=== PATIENT | female | born 1940 | race Caucasian/White ===

== ENCOUNTER 2017-12-05 20:22 | Emergency (ER) | payer MEDICARE, OTHER, SELFPAY ==
[2017-12-05 20:23] VITALS: BP 177/95; PULSE 75; RESP 20; TEMP 37; O2SAT 97; BMI 22.5
--- NOTE | 2017-12-05 20:34 | CT_ITS ---
CT Head or Brain W/O Contrast INDICATION: WEAKNESS, MENTAL STATUS CHANGES, AGITATED, COMBATIVE, RECENT BACK SX, HX PARKINSONS COMPARISON: None TECHNIQUE: Noncontrast axial CT examination of the brain. Radiation dose optimization applied. FINDINGS: The ventricular system is normal in size and symmetric. The cortical sulci, sylvian fissures, and basal cisterns are well seen. The naranjo-white matter junction is distinct. There is no evidence of acute intracranial hemorrhage, mass effect, midline shift, or abnormal extra-axial collection. The calvarium is intact and the visualized paranasal sinuses and mastoid air cells are clear. CT/Brain/Head without Contrast IMPRESSION: No evidence of acute intracranial abnormality by noncontrast CT. at 2120 Reported and signed by: Lori Mckeon MD Electronically Signed: Lori Mckeon MD at 20:19 EST Tel , Service support ,
--- NOTE | 2017-12-05 20:34 | RAD_ITS ---
XR Chest 1 View INDICATION: MENTAL STATUS CHANGE, RECENT BACK SURGERY COMPARISON: None TECHNIQUE: Frontal view of the chest FINDINGS: The heart size is enlarged. Central pulmonary vascularity is prominent. The patient is rotated and costochondral junction results in hyperdensity in the right suprahilar region. Mild atelectatic changes are seen at the bases, the lungs are otherwise clear. Bridging osteophytes are noted at the thoracic spine. The right hemidiaphragm is mildly elevated. RAD/Chest 1 View (Portable) IMPRESSION: Patient rotation. Cardiomegaly. Mild bibasilar atelectasis. at 2103 Reported and signed by: Lori Mckeon MD Electronically Signed: Lori Mckeon MD at 20:02 EST Tel , Service support ,
--- NOTE | 2017-12-05 20:34 | EKG12_ITS ---
Test Reason : MENTAL STATUS CHANGE Blood Pressure : / mmHG Vent. Rate : 071 BPM Atrial Rate : 071 BPM P-R Int : 216 ms QRS Dur : 078 ms QT Int : 428 ms P-R-T Axes : 029 -21 008 degrees QTc Int : 465 ms Sinus rhythm with 1st degree A-V block Leftward axis Poor R wave progression Nonspecific T wave abnormality Confirmed by SOLITARIO GRIDER, HARRIS ([id number]), assistant production editor SHAQ ROBERTO ([id number]) on 12/09/2017 1:05:21 PM Referred By: Confirmed By:HARRIS JEREZ MD
--- NOTE | 2017-12-05 20:46 | ED.VISSUMM ---
- ER Visit Summary Date of Service: 12/05/17 Chief Complaint: Agitated History of Present Illness: The patient is a 77 F presenting with combative behavior. Per family patient has been agitated today. She has not been eating or drinking as well as usual. She is currently in assisted living. She was combative with staff trying to help her today. She had a recent procedure with Dr. Pastrana for a compression fracture. No change in her pain medications. She has a history of hypertension, hyperlipidemia, Parkinson's disease. She is DNR [facility]. Physical Examination: Vitals are stable. Patient is afebrile. Alert no acute distress. HEENT exam dry mucous membranes Neck is supple. Lungs are clear and equal bilaterally. Heart is regular rate and rhythm. Abdomen is soft nontender nondistended. Back: Nontender, no signs of infection Extremities are unremarkable. Skin is warm and dry. No focal neurologic deficit. Agitated Remainder of exam is unremarkable. Emergency Department Course and Treatment: EKG is sinus rate of 71. Chest x-ray shows cardiomegaly, atelectasis. CBC is normal except for platelets 146 which is at her baseline. Chemistries unremarkable. Urinalysis unremarkable. Troponin is negative. CT head shows no acute process. Influenza negative. Patient takes Dilaudid at home for her chronic back pain. She is given 1 dose in the emergency department. Discussed with the counseling center for evaluation for geropsychiatric admission. Disposition: Per counseling center Impression: Combative behavior This note was generated with [employer] dictation software. It may contain incorrect words, spelling, and punctuation that were not noted in review of the chart prior to signing ED Disposition - Plan for ED Patient: Chief Complaint: Mental Status Change Referrals: Ruthie Castro MD [Primary Care Provider] -
[2017-12-05 20:47] LABS: Absolute Lymphocyte Count 0.82 X10^3/ul (0.83-4.51); Absolute Neutrophil Count 2.9 X10^3/uL (2.0-7.7); Basophil# 0.01 X10^3/uL; Basophil% 0.2 % (0-1); Eosinophil# 0.06 X10^3/uL; Eosinophils% 1.4 % (0-5); Hematocrit 40.9 % (37-47); Hemoglobin 13.8 g/dl (12.0-15.0); Lymphocyte # 0.82 X10^3/ul (4.0); Lymphocyte % 19.2 % (19-41); Mean Corp Hgb Conc 33.7 g/gl (32-36); Mean Corpuscular Hgb 30.6 pg (27.0-32.0); Mean Corpuscular Volume 90.7 fL (81-99); Mean Platelet Vol. 10.4 fl (6.2-12.0); Monocyte# 0.48 X10^3/uL; Monocyte% 11.3 % (0-10); Neutrophil # 2.89 X10^3/uL (2.7-7.7); Neutrophil % 67.9 % (47-70); POSITIVE COUNT NO; POSITIVE DIFFERENTIAL NO; POSITIVE MORPHOLOGY NO; Platelet Count 146 K/mm3 (150-450); RBC Distribution Width CV 14.2 % (11.6-14.6); RBC Distribution Width SD 46.4 fl (35.1-43.9); Red Blood Count 4.51 M/mm3 (4.2-5.4); White Blood Count 4.3 K/mm3 (4.4-11.0)
[2017-12-05 21:06] LABS: Anion Gap 10 (5-15); BUN 16 mg/dL (7-18); BUN/Creat Ratio 33.3 RATIO (10-20); Chloride 106 mmol/L (98-107); Creatinine, Serum 0.48 mg/dL (0.55-1.02); EST Glomerular Filtration Rate 133 mL/min (>60); Est Glom Filt Rate - Afr Amer 161 mL/min (>60); Estimated Creatinine Clearance 38.97 ml/min; Glucose 78 mg/dL (74-106); Potassium 3.6 mmol/L (3.5-5.1); Sodium Level 142 mmol/L (136-145)
[2017-12-05 21:12] LABS: Bacteria 0 SEEN /hpf (None Seen); Mucous, Urine 0 SEEN /hpf (<or=2+)
[2017-12-05 21:14] LABS: Color, Urine Yellow (Yellow); Glucose, Dipstick Normal (Normal); Leukocyte Esterase-Dipstick 100 /ul (Negative); Nitrite-Dipstick Negative (Negative); Occult Blood-Urine 25 /ul (Negative); Protein-Dipstick 15 mg/dl (Negative); Specific Gravity, Urine 1.025 (1.002-1.030); Urine Bilirubin Dipstick 1 mg/dL (Negative); Urine Clarity Clear (Clear); Urine Urobilinogen 1 mg/dl (Normal)
[2017-12-05 21:15] LABS: Ketone-Dipstick 150 mg/dl (Negative)
[2017-12-05 21:20] LABS: Red Blood Cells-Urine 0-5 SEEN /hpf (0-5); Squamous Epithelial Cells - UA 0-5 SEEN /hpf (5-10); White Blood Cells 0-5 SEEN /hpf (0-5)
[2017-12-05 21:28] VITALS: BP 173/80; PULSE 75; RESP 20; O2SAT 96
[2017-12-05] MEDS: HYDROmorphone 1 MG/ML Syringe 0.5 MG IV (22:00)
[2017-12-05 22:03] VITALS: BP 181/96; PULSE 73; RESP 20; O2SAT 98
[2017-12-05 23:29] VITALS: BP 153/87; PULSE 76; RESP 20; O2SAT 96
--- NOTE | 2017-12-05 23:32 | ED.RN ---
FOUND PT CLIMBING OUT OF THE BED AND STATE SHE NEEDED TO GO TO THE BATHROOM,GAIT UNSTEADY.WITH ASSIST OF TWO PLACED PT ON BSC,PT VOIDED [facility] AND THEN BACK TO BED.PT ARTHUR WITHOUT DISTRESS.
[2017-12-06] VITALS (7 sets, daily range): BP systolic 159–193; BP diastolic 60–100; PULSE 74–97; RESP 16–20; TEMP 37.1; O2SAT 97–98
[2017-12-06 00:56] LABS: Amphetamine Urine VISTA NEGATIVE (<1000 ng/mL); Barbiturate Urine VISTA NEGATIVE (< 200 ng/mL); Benzodiazepine Urine VISTA POSITIVE (< 200 ng/mL); Cocaine Urine VISTA NEGATIVE (< 300 ng/mL); Ecstacy Urine VISTA NEGATIVE (< 500 ng/mL); Methadone Urine VISTA NEGATIVE (< 300 ng/mL); PCP Urine VISTA NEGATIVE (< 25 ng/mL); THC Urine VISTA NEGATIVE (< 50 ng/mL); Vista UDS pH Range 5
[2017-12-06] MEDS: Ziprasidone IM 20 MG/ML VIAL 10 MG IM (02:30)
--- NOTE | 2017-12-06 03:49 | ED.RN ---
0230 pt was given lawandadon because she keeps trying to get out of the bed and is not cooperative--argumentive.will assist pt up to the bsc and she voids small amounts of urine and then help pt back to bed and then she tries to get out of the bed once again.
--- NOTE | 2017-12-06 04:01 | ED.RN ---
BED ALARM REMAINS ON.
--- NOTE | 2017-12-06 04:23 | ED.RN ---
WITH ASSIST OF TWO,HELPED PT UP TO THE BSC.PT VOIDED ABOUT 50CC AND THEN BACK TO BED.BED ALARM ON.PT REMAINS RESTLESS AND KEEPS ASKING TO GO TO GO TO THE BATHROOM.PT REMINDED THAT SHE JUST GOT UP AND VOIDED.PT DENIED THAT SHE HAD.CURTAIN PULLED SO PT CAN BE VISUALIZED.
--- NOTE | 2017-12-06 05:18 | ED.RN ---
PT REMAINS RESTLESS,MD AWARE AND SPOKE TO PT.SHE STATED TO HIM THAT SHE WANTED TO GO HOME.PT ADVISED SHE COULD NOT.UNABLE TO REASON WITH HER.DID ENCOURAGE PT TO SLEEP AND SHE STATED SHE COULD NOT.
--- NOTE | 2017-12-06 05:50 | ED.RN ---
PT WAS SAYING THAT SHE WANTED FOOD,BROUGHT PT SOME COOKIES AND PT DECLINED SAYING SHE WANTED REAL FOOD.THIS NURSE BROUGHT IN A SANDWHICH AND MILK AND PT REFUSED.BED ALARM REMAINS ON.PT REFUSED THE BP CUFF TO BE APPLIED.PT TOOK IT OFF AND DIDN'T WANT IT ON.LEFT OFF.
--- NOTE | 2017-12-06 06:54 | ED.RN ---
WITH ASSIST OF TWO HELPED PT UP TO THE BSC,PT VOIDED AND BACK IN BED.PT ARTHUR WITH C/O WANTING TO GO HOME.OFFERRED HER SOME COOKIES AND MILK AND PT DECLINED.BED ALARM ON.
--- NOTE | 2017-12-06 08:48 | ED.RN ---
PT AGITATED, ATTEMPTING TO GET OUT OF BED. BED RAILS UP X2, FOOT RAISED, BED ALARM ON. PT STATES WANTING TO GO HOME. WAITING FOR [facility] TO RETURN CALL FOR PT REPORT.
--- NOTE | 2017-12-06 08:54 | ED.RN ---
[facility] accepted. dr hartmann accepted. [phone]
--- NOTE | 2017-12-06 09:12 | NURSING ---
ACCEPTED AT [facility]
--- NOTE | 2017-12-06 09:16 | ED.RN ---
PT REPORT CALLED TO [facility] TO ISA[facility].
--- NOTE | 2017-12-06 09:20 | NURSING ---
CALLED [facility]. ETA IS 1 HR TO 1.5 HR
--- NOTE | 2017-12-06 09:45 | NURSING ---
CALLED [facility], TALKED TO ISAAC. LET HER KNOW PATIENT IS BEING PINK SLIPPED
== END 2017-12-06 11:02 ==
LOC: ED 20:54
PROVIDERS: Emergency Provider Emergency Medicine; Family Provider Family Medicine; PCP Family Medicine
DX: F91.9 Conduct disorder, unspecified (principal); I10 Essential (primary) hypertension; E78.00 Pure hypercholesterolemia, unspecified; G20 Parkinson's disease; K21.9 Gastro-esophageal reflux disease without esophagitis; I51.7 Cardiomegaly; J98.11 Atelectasis; M54.9 Dorsalgia, unspecified; G89.29 Other chronic pain; Z66 Do not resuscitate; Z79.82 Long term (current) use of aspirin; Z79.899 Other long term (current) drug therapy
CPT/HCPCS: 70450; 71045; 80048; 80307; 81001; 84484; 85025; 87804; 93005; 96361; 96372; 96374; 99285; J7030; J7040; A4216; J2405; J3486

== ENCOUNTER 2018-05-20 18:39 | Emergency (ER) | payer MEDICARE, OTHER, SELFPAY ==
[2018-05-20 18:40] VITALS: BP 166/95; PULSE 64; RESP 15; TEMP 37.3; O2SAT 95; BMI 24.5
--- NOTE | 2018-05-20 19:24 | CT_ITS ---
STUDY: CT ABDOMEN AND PELVIS WITHOUT CONTRAST REASON FOR EXAM: Female, 77 years old. Abdominal pain no bowel movement since last Saturday History of Parkinson's RADIATION DOSAGE (If Supplied By Facility): CTDIvol = ( 7.03 ) mGy, DLP = ( 335.11 ) mGycm TECHNIQUE: Transaxial images were obtained from the dome of the diaphragm to the symphysis pubis without oral contrast, and without intravenous contrast. Sagittal and coronal images were reconstructed. Individualized dose optimization techniques were used for this CT. COMPARISON: None. FINDINGS: There are groundglass opacities in the lung bases. There is partial visualization of the heart. The heart appears mildly enlarged. Normal liver. Normal gallbladder and extrahepatic biliary system. Normal spleen. Normal pancreas. Normal bilateral adrenal glands. There is a right-sided extrarenal pelvis. There is a 3.4 mm stone in the lower pole of the right kidney. There multiple stones in the left kidney the largest of which measures 3.4 x 6.6 mm. There is no visualized hydronephrosis. Normal visualized stomach. Normal small intestine. There is abundant stool in the colon especially the distal descending colon and sigmoid. There is a air fluid appearance of the cecum. There is a tortuous appearance of the distal transverse colon and sigmoid with a hairpin turn. There is non-visualization of the appendix. The aorta is partially calcified. Normal inferior vena cava. Normal retroperitoneum. Normal urinary bladder. There is absence of the uterus consistent with a prior hysterectomy. There is a small umbilical hernia containing fat. There is loss of height at the level of T11 and T12 of at least 75% which is new since the prior study January 17, 2017 does not appear acute. L2 has been treated with vertebroplasty. There is multilevel disc space narrowing. At the level of L2 there is radiopaque material extending into the canal. There is moderate central stenosis. At L2-L3 there is a broad disc bulge severe neural foraminal narrowing moderate to severe central stenosis. At L4-L5 there is a broad disc osteophyte facet arthropathy severe neural foraminal narrowing severe central stenosis. There is disc space narrowing at L5-S1. There are bilateral intramedullary rods and cortical screws transfixing the femurs. CT/Abdomen/Pelvis without Cont IMPRESSION: Constipation tortuous redundant bowel. The appendix is not visualized. Bilateral renal stones are visualized hydronephrosis or stones along the course of ureters. Advanced degenerative changes of the thoracolumbar spine. Chronic T11-T12 compression fractures. Bilateral open reduction internal fixation of the femurs. Electronically Signed: Leyla Galvez MD at 20:18 EDT Tel , Service support ,
[2018-05-20 19:38] LABS: Absolute Lymphocyte Count 1.35 X10^3/ul (0.83-4.51); Absolute Neutrophil Count 2.8 X10^3/uL (2.0-7.7); Basophil# 0.03 X10^3/uL; Basophil% 0.6 % (0-1); Eosinophil# 0.17 X10^3/uL; Eosinophils% 3.6 % (0-5); Hematocrit 39.2 % (37-47); Hemoglobin 13.3 g/dl (12.0-15.0); Lymphocyte # 1.35 X10^3/ul (4.0); Lymphocyte % 28.4 % (19-41); Mean Corp Hgb Conc 33.9 g/gl (32-36); Mean Corpuscular Hgb 28.7 pg (27.0-32.0); Mean Corpuscular Volume 84.7 fL (81-99); Mean Platelet Vol. 9.8 fl (6.2-12.0); Monocyte# 0.44 X10^3/uL; Monocyte% 9.3 % (0-10); Neutrophil # 2.76 X10^3/uL (2.7-7.7); Neutrophil % 58.1 % (47-70); Platelet Count 179 K/mm3 (150-450); RBC Distribution Width CV 14.1 % (11.6-14.6); RBC Distribution Width SD 42.7 fl (35.1-43.9); Red Blood Count 4.63 M/mm3 (4.2-5.4); White Blood Count 4.8 K/mm3 (4.4-11.0)
[2018-05-20 19:39] LABS: POSITIVE COUNT NO; POSITIVE DIFFERENTIAL NO; POSITIVE MORPHOLOGY NO
[2018-05-20 19:40] LABS: Anion Gap 8 (5-15); BUN 18 mg/dL (7-18); BUN/Creat Ratio 23.7 RATIO (10-20); Calcium,Total 9.3 mg/dL (8.5-10.1); Chloride 105 mmol/L (98-107); Creatinine, Serum 0.76 mg/dL (0.55-1.02); EST Glomerular Filtration Rate 79 mL/min (>60); Est Glom Filt Rate - Afr Amer 95 mL/min (>60); Estimated Creatinine Clearance 37.26 ml/min; Glucose 92 mg/dL (74-106); Potassium 4.1 mmol/L (3.5-5.1); Sodium Level 139 mmol/L (136-145)
[2018-05-20 20:58] LABS: Bacteria 0 SEEN /hpf (None Seen); Mucous, Urine 0 SEEN /hpf (<or=2+); Red Blood Cells-Urine 0 SEEN /hpf (0-5); Squamous Epithelial Cells - UA 0 SEEN /hpf (5-10)
[2018-05-20 20:59] LABS: Color, Urine Yellow (Yellow); Glucose, Dipstick Normal (Normal); Ketone-Dipstick 5 mg/dl (Negative); Leukocyte Esterase-Dipstick 500 /ul (Negative); Nitrite-Dipstick Negative (Negative); Occult Blood-Urine Negative /ul (Negative); Protein-Dipstick Negative (Negative); Specific Gravity, Urine 1.015 (1.002-1.030); Urine Bilirubin Dipstick Negative (Negative); Urine Clarity Clear (Clear); Urine Urobilinogen Normal (Normal)
[2018-05-20 21:11] LABS: White Blood Cells 0-5 SEEN /hpf (0-5)
[2018-05-20 21:28] VITALS: BP 190/119; PULSE 62; RESP 18; O2SAT 97
--- NOTE | 2018-05-20 22:18 | ED.VISSUMM ---
- ER Visit Summary Date of Service: 05/20/18 Chief Complaint: Abdominal pain, constipation History of Present Illness: The patient is a 77 F who complains of vague abdominal pain. She is a feeling of the needing to have a bowel movement but is unable. Her last bowel movement was 3 days ago. Daughter states that she tends to fluctuate between constipation and diarrhea. She has not had fever or vomiting. Past history significant for reflux, hypertension, high cholesterol, Parkinson's. Only prior abdominal surgery is a hysterectomy. Physical Examination: Vital signs significant for blood pressure 166/95, temperature 99.1. Head neck examination normal. Heart is regular rate and rhythm. Lung sounds are clear. Abdomen is soft with mild lower abdominal tenderness. Active bowel sounds are noted throughout. There is no guarding or rebound. Test Results: CBC and chemistry studies are normal. Urinalysis shows [address] flank shows constipation. Bilateral renal stones are noted. Emergency Department Course and Treatment: Patient was given a soapsuds enema here which she did not tolerate well. After discussing with patient's daughter, she feels that she would do better with an oral regimen at home. She is currently in assisted living. She states there will be staff available to help her tomorrow with this. She will be given a bottle of GoLYTELY, with instructions to drink 1 glass every 20-30 minutes until she is able to have a bowel movement. She will likely not need to drink the entire bottle. Treatment Plan: [] Disposition: Discharge Impression: Constipation This note was generated with [employer] dictation software. It may contain incorrect words, spelling, and punctuation that were not noted in review of the chart prior to signing ED Disposition - Plan for ED Patient: Disposition: Home or Assisted Living Chief Complaint: Abd Pain Instructions: ED Constipation Referrals: Ruthie Castro MD [Primary Care Provider] - 1 Week
[2018-05-20 22:19] VITALS: BP 170/115; PULSE 63; RESP 18; O2SAT 97
[2018-05-20] MEDS: Electrolyte Solution/Peg's 4000 ML PO (22:50)
== END 2018-05-20 23:00 | disposition home or self-care (01) ==
PROVIDERS: Emergency Provider Emergency Medicine; Family Provider Family Medicine; PCP Family Medicine
DX: K59.00 Constipation, unspecified (principal); N20.0 Calculus of kidney; K21.9 Gastro-esophageal reflux disease without esophagitis; I10 Essential (primary) hypertension; E78.00 Pure hypercholesterolemia, unspecified; G20 Parkinson's disease; Z90.710 Acquired absence of both cervix and uterus; Z79.82 Long term (current) use of aspirin; Z79.899 Other long term (current) drug therapy
CPT/HCPCS: 74176; 80048; 81001; 85025; 99285; A4216

== ENCOUNTER 2018-05-25 21:09 | Inpatient (IN) | payer MEDICARE, OTHER, SELFPAY ==
[2018-05-25 21:11] VITALS: BP 151/89; PULSE 64; RESP 15; TEMP 37.3; O2SAT 93; BMI 23.8
--- NOTE | 2018-05-25 21:34 | CT_ITS ---
STUDY: CT BRAIN WITHOUT CONTRAST REASON FOR EXAM: Female, 77 years old. Headache and hypertension. Parkinson's. RADIATION DOSAGE (If Supplied By Facility): CTDIvol = ( 44.99 ) mGy, DLP = ( 812.98 ) mGycm TECHNIQUE: Transaxial CT imaging of the brain was performed without administration of intravenous contrast material. Individualized dose optimization techniques were used for this CT. COMPARISON: December 05, 2017 FINDINGS: Normal soft tissue structures. Normal calvarium. Ossification of the falx on the left. Normal size ventricles and extra-axial spaces for the patient's age. Normal white matter tracts of the cerebral hemispheres. Normal basal ganglia and thalami. Normal brainstem. Normal cerebellum. There is no intracranial hemorrhage. There are no findings of an acute ischemic infarction. Normal visualized paranasal sinuses. CT/Brain/Head without Contrast IMPRESSION: Normal unenhanced CT scan of the brain. Electronically Signed: Pedro Pablo Chery MD at 22:41 EDT , Service support ,
--- NOTE | 2018-05-25 21:34 | RAD_ITS ---
STUDY: X-RAY CHEST REASON FOR EXAM: Female, 77 years old. Left clavicular pain status post fall TECHNIQUE: Single frontal view of the chest. COMPARISON: October 26, 2017 and December 05, 2017 FINDINGS: New bilateral clavicular fractures. Subsegmental atelectasis left base. The lungs are clear and expanded. There is no demonstrated pleural abnormality. Normal size heart. Normal mediastinum and jarocho. Normal visualized pulmonary arteries. Normal visualized aortic arch and descending thoracic aorta. Normal visualized thoracic spine. Normal visualized ribs, clavicles, and shoulders. There is no demonstrated abnormality of the visualized soft tissue structures of the upper abdomen. IMPRESSION: New bilateral clavicular fractures otherwise Normal x-ray examination of the chest. Electronically Signed: Pedro Pablo Chery MD at 22:30 EDT , Service support , RAD/Chest 1 View (Portable)
--- NOTE | 2018-05-25 21:36 | CT_ITS ---
STUDY: CT CERVICAL SPINE WITHOUT CONTRAST REASON FOR EXAM: Female, 77 years old. Fall RADIATION DOSAGE (If Supplied By Facility): CTDIvol = ( 16.56 ) mGy, DLP = ( 302.94 ) mGycm TECHNIQUE: High resolution transaxial imaging was performed without contrast material. Sagittal and coronal images were reconstructed. Individualized dose optimization techniques were used for this CT. COMPARISON: Cervical spine radiograph February 01, 2016 and MR cervical spine May 27, 2015 FINDINGS: Normal craniovertebral junction. Normal anterior atlantoaxial articulation. Normal odontoid process. Normal cervical lordosis. Normal vertebral bodies and posterior osseous elements. C2-3: Normal endplates. Normal disc height and morphology. Normal central canal and intervertebral neuroforamina. C3-4: Normal endplates. Normal disc height and morphology. Normal central canal and intervertebral neuroforamina. Posterior disc marginal osteophyte. C4-5: Normal endplates. Normal disc height and morphology. Normal central canal and narrowed right intervertebral neuroforamina. Posterior disc marginal osteophyte. C5-6: Normal endplates. Normal disc height and morphology. Normal central canal and intervertebral neuroforamina. C6-7: Normal endplates. Normal disc height and morphology. Normal central canal and intervertebral neuroforamina. Posterior disc marginal osteophyte. C7-T1: Normal endplates. Normal disc height and morphology. Normal central canal and intervertebral neuroforamina. Posterior disc marginal osteophyte. Normal visualized soft tissue structures. Calcified plaque in the carotid bulb on the left. CT/Spine Cervical without Contras IMPRESSION: No fracture Electronically Signed: Pedro Pablo Chery MD at 22:45 EDT , Service support ,
[2018-05-25] MEDS: 0.9% Normal Saline 1,000 ML 1000 ML IV (21:44)
[2018-05-25] MEDS: Ondansetron 4 MG/2 ML Vial IV (21:45)
[2018-05-25] MEDS: Morphine 2 MG/ML Syringe IV (21:46)
[2018-05-25 21:52] LABS: Hematocrit 38.4 % (37-47); Hemoglobin 13.1 g/dl (12.0-15.0); Mean Corp Hgb Conc 34.1 g/gl (32-36); Mean Corpuscular Hgb 28.9 pg (27.0-32.0); Mean Corpuscular Volume 84.6 fL (81-99); Mean Platelet Vol. 10.3 fl (6.2-12.0); Platelet Count 190 K/mm3 (150-450); RBC Distribution Width CV 13.9 % (11.6-14.6); RBC Distribution Width SD 42.6 fl (35.1-43.9); Red Blood Count 4.54 M/mm3 (4.2-5.4); White Blood Count 4.4 K/mm3 (4.4-11.0)
[2018-05-25 21:55] LABS: Scan Indicated on CBC? Y/N NO
[2018-05-25 22:05] LABS: ALB/GLOB Ratio 1.1 RATIO (0.9-2.4); AST(SGOT) 12 U/L (15-37); Alanine Aminotransfer ALT/SGPT 8 U/L (13-56); Albumin, Serum 3.7 g/dL (3.2-5.0); Alkaline Phosphatase 124 U/L (45-117); Anion Gap 7 (5-15); BUN 19 mg/dL (7-18); BUN/Creat Ratio 27.5 RATIO (10-20); Calcium,Total 9.2 mg/dL (8.5-10.1); Chloride 107 mmol/L (98-107); Creatinine, Serum 0.69 mg/dL (0.55-1.02); EST Glomerular Filtration Rate 87 mL/min (>60); Est Glom Filt Rate - Afr Amer 106 mL/min (>60); Estimated Creatinine Clearance 37.26 ml/min; Globulin 3.3 g/dL (2.2-4.2); Glucose 120 mg/dL (74-106); Potassium 3.7 mmol/L (3.5-5.1); Sodium Level 140 mmol/L (136-145)
[2018-05-25 22:25] LABS: Red Blood Cells-Urine 0 SEEN /hpf (0-5); Squamous Epithelial Cells - UA 0 SEEN /hpf (5-10)
[2018-05-25 22:27] LABS: Color, Urine Yellow (Yellow); Glucose, Dipstick Normal (Normal); Ketone-Dipstick 15 mg/dl (Negative); Leukocyte Esterase-Dipstick Negative /ul (Negative); Nitrite-Dipstick Negative (Negative); Occult Blood-Urine 10 /ul (Negative); Protein-Dipstick 15 mg/dl (Negative); Urine Bilirubin Dipstick Negative (Negative); Urine Clarity Clear (Clear); Urine Urobilinogen Normal (Normal)
[2018-05-25 22:42] VITALS: BP 125/88; BP 139/84; BP 140/72; PULSE 58; PULSE 59; PULSE 61
[2018-05-25 22:53] LABS: Bacteria RARE /hpf (None Seen); Hyaline Cast 0-5 SEEN /lpf (0-5); Mucous, Urine 2+ /hpf (<or=2+); White Blood Cells 0-5 SEEN /hpf (0-5)
--- NOTE | 2018-05-25 23:08 | CT_ITS ---
STUDY: CT CHEST WITHOUT CONTRAST REASON FOR EXAM: Female, 77 years old. Fall. Left-sided pain. Chest wall trauma. RADIATION DOSAGE (If Supplied By Facility): CTDIvol = ( 16.34 ) mGy, DLP = ( 671.10 ) mGycm TECHNIQUE: Transaxial imaging was performed without the administration of intravenous contrast material. Individualized dose optimization techniques were used for this CT. COMPARISON: Chest x-ray May 25, 2018. CT abdomen and pelvis May 20, 2018. FINDINGS: Bilateral lower lobe dependent atelectasis. No focal infiltrate or effusions. No pneumothorax. Borderline cardiomegaly. No pericardial effusion. Normal mediastinum. Normal hilar regions. Normal unenhanced pulmonary arteries. Mild atherosclerotic calcification of the thoracic aorta. Mildly displaced fracture distal one third of the left clavicle axial images 10 through 18 series 2 and coronal image 108 series 602. Old left fourth anterior rib fracture unchanged axial image 69 series 2. Severe compression fractures T11 and T12 unchanged since the prior recent CT scan.. There is a focal kyphosis at these levels. Additional mild to moderate compression fractures T6, T7 and T8 which are also probably old. An acute fracture line is not identified. Postkyphoplasty changes at L2. Lower thoracic dextroscoliosis. Scattered subcentimeter nonobstructing left renal calculi unchanged. CT/Chest without Contrast IMPRESSION: Mildly displaced fracture distal left clavicle. No acute findings in the lungs. No focal infiltrates or effusions. No pneumothorax. Old severe compression fractures T11 and T12. Additional compression fractures in the thoracic spine which are probably old. Old left fourth anterior rib fracture. Electronically Signed: Tino Butler MD at 0:31 EDT , Service support ,
[2018-05-25 23:09] VITALS: BP 133/68; PULSE 55; RESP 15; O2SAT 93
--- NOTE | 2018-05-25 23:30 | ED.VISSUMM ---
- ER Visit Summary Date of Service: 05/25/18 Chief Complaint: Fall History of Present Illness: The patient is a 77 F who lives in an assisted living like center. She apparently has had numerous falls over the past year. She was seen in the emergency department about 5 days ago with constipation. Since that time she has not had much to eat or drink and in fact has not really had anything today. Daughter states that they found her today slumped up against a wall. Her chief complaints from the fall include a headache and a bump in the occipital region as well as pain in the left shoulder and in her neck. She denies any symptoms from the waist down. She points to her mid clavicle as the source of pain and states that she broke her clavicle in the past. (Prior healed clavicular fracture was not noted on chest x-ray in November 2017.) daughter states the patient is extremely weak and she does not believe that is safe for the patient to return to assisted living. Physical Examination: Afebrile vital signs are stable Gen: Well-nourished well-developed patient appears globally weak. Head: Normocephalic atraumatic Eyes: Perrl EOMI ENT: TMs clear no rhinorrhea moist mucous membranes Neck: Supple no lymphadenopathy no JVD nontender CVS: Regular rate rhythm no murmurs normal S1-S2 Respiratory: No distress clear to auscultation bilaterally patient has tenderness to the mid left clavicular region with associated hematoma. Abdomen: Soft nontender nondistended normal bowel sounds no masses Back: Nontender Extremity: Nontender no edema Skin: Normal color no rash Neuro: alert orientated ?3 CN II-XII intact Psych: Normal affect normal mood Test Results: CBC and CMP appear normal. Urinalysis shows ketones as well as concentration with a specific gravity 1.030. No obvious infection. Chest x-ray was read as bilateral clavicular fractures. Based on physical exam findings I do not see a fracture on the right I would agree with one on the left. Family is asked for a confirmatory study and so a CT the chest was obtained which does demonstrate the left clavicular fracture. Brain and C-spine CT imaging were negative. Emergency Department Course and Treatment: The patient received morphine and Zofran and IV fluids. Patient was asked to stand at the bedside and essentially could not she use the bed leaning up against. Her orthostatics were not positive. These were performed before the patient received pain medication. Patient is clearly not safe to go home. Family is not sure that she is safe to be in an assisted living center. Our plan will be to admit the patient for IV hydration for her dehydration physical therapy evaluation and probable placement. Impression: 1. Fall 2. Dehydration 3. Left clavicular fracture 4. Parkinson's disorder This note was generated with [employer] dictation software. It may contain incorrect words, spelling, and punctuation that were not noted in review of the chart prior to signing ED Disposition - Plan for ED Patient: Chief Complaint: Fall Referrals: Ruthie Castro MD [Primary Care Provider] -
--- NOTE | 2018-05-25 23:34 | ED.DCSUM_ITS ---
- ER Visit Summary Date of Service: 05/25/18 Chief Complaint: Fall History of Present Illness: The patient is a 77 F who lives in an assisted living like center. She apparently has had numerous falls over the past year. She was seen in the emergency department about 5 days ago with constipation. Since that time she has not had much to eat or drink and in fact has not really had anything today. Daughter states that they found her today slumped up against a wall. Her chief complaints from the fall include a headache and a bump in the occipital region as well as pain in the left shoulder and in her neck. She denies any symptoms from the waist down. She points to her mid clavicle as the source of pain and states that she broke her clavicle in the past. (Prior healed clavicular fracture was not noted on chest x-ray in November 2017.) daughter states the patient is extremely weak and she does not believe that is safe for the patient to return to assisted living. Physical Examination: Afebrile vital signs are stable Gen: Well-nourished well-developed patient appears globally weak. Head: Normocephalic atraumatic Eyes: Perrl EOMI ENT: TMs clear no rhinorrhea moist mucous membranes Neck: Supple no lymphadenopathy no JVD nontender CVS: Regular rate rhythm no murmurs normal S1-S2 Respiratory: No distress clear to auscultation bilaterally patient has tenderness to the mid left clavicular region with associated hematoma. Abdomen: Soft nontender nondistended normal bowel sounds no masses Back: Nontender Extremity: Nontender no edema Skin: Normal color no rash Neuro: alert orientated ?3 CN II-XII intact Psych: Normal affect normal mood Test Results: CBC and CMP appear normal. Urinalysis shows ketones as well as concentration with a specific gravity 1.030. No obvious infection. Chest x- ray was read as bilateral clavicular fractures. Based on physical exam findings I do not see a fracture on the right I would agree with one on the left. Family is asked for a confirmatory study and so a CT the chest was obtained which does demonstrate the left clavicular fracture. Brain and C- spine CT imaging were negative. Emergency Department Course and Treatment: The patient received morphine and Zofran and IV fluids. Patient was asked to stand at the bedside and essentially could not she use the bed leaning up against. Her orthostatics were not positive. These were performed before the patient received pain medication. Patient is clearly not safe to go home. Family is not sure that she is safe to be in an assisted living center. Our plan will be to admit the patient for IV hydration for her dehydration physical therapy evaluation and probable placement. Impression: 1. Fall 2. Dehydration 3. Left clavicular fracture 4. Parkinson's disorder This note was generated with [employer] dictation software. It may contain incorrect words, spelling, and punctuation that were not noted in review of the chart prior to signing ED Disposition - Plan for ED Patient: Chief Complaint: Fall Referrals: Ruthie Castro MD [Primary Care Provider] -
[2018-05-26 00:23] VITALS: BP 146/70; PULSE 65; RESP 15; O2SAT 93
[2018-05-26 01:43] VITALS: BMI 22.8
[2018-05-26 01:56] VITALS: BMI 22.9
[2018-05-26] MEDS: Morphine 2 MG/ML Syringe 1 MG IV ×2 (02:09→06:23)
[2018-05-26] MEDS: 0.9% Normal Saline 1,000 ML 100 ML IV (02:11)
[2018-05-26 02:16] VITALS: BP 142/77; PULSE 67; RESP 16; TEMP 36.8; O2SAT 97
--- NOTE | 2018-05-26 03:33 | PCM.HP.STD ---
Problem List (1) Clavicular fracture Status: Acute (2) Multiple falls Status: Acute (3) Dehydration Status: Acute History of Present Illness Date of Admission: 05/26/18 Chief Complaint: Fall The patient is a 77 year old F who lives in assisted living; and with a significant history of Parkinson's disease and hypertension who presented after being found propped up against a wall. Patient's reported that she she tripped over and fell hitting the back of her head and she has extreme pain in her left upper chest and left shoulder. Her daughter reported that since is not eating or drinking. The patient has had multiple falls in the last year. She had a femur fracture last fall. Her daughter does not think that she can take care of herself at the assisted living facility.She was seen at emergency department 5 days ago because of constipation. With this visit, patient was noted to have ketones in her urine. ED doctor reported the patient was unable to be maintained in a standing position for orthostatic blood pressure checks. Past Medical History Past Medical History (Chronic Problems): Chronic Problems GERD (gastroesophageal reflux disease) (Chronic) Closed left hip fracture (Chronic) Anxiety (Chronic) Hypertension (Chronic) Parkinson disease (Chronic) end stage, pt has declined sinemet until recently, sinemet and sinemet CR are both fairly new for her, she is tolerating well Depression (Chronic) Osteoarthritis (Chronic) Flatulence (Chronic) Constipation (Chronic) Insomnia (Chronic) Muscle spasm (Chronic) Allergies ciprofloxacin [From Cipro] Allergy (Verified 05/20/18 18:42) Unknown not sure but thinks she is doxycycline Allergy (Verified 05/25/18 21:29) Unknown not sure but thinks she is erythromycin base Allergy (Verified 05/25/18 21:29) Unknown not sure but thinks she is fentanyl Allergy (Verified 05/25/18 21:29) Unknown not sure fosinopril [From Monopril] Allergy (Verified 05/25/18 21:29) Unknown not sure lorazepam Allergy (Verified 05/25/18 21:29) Unknown unsure midazolam [From Versed] Allergy (Verified 05/25/18 21:29) Unknown unsure moxifloxacin [From Avelox] Allergy (Verified 05/25/18 21:29) Unknown unsure naproxen [From Anaprox] Allergy (Verified 05/25/18 21:29) Unknown nitrofurantoin [From Macrobid] Allergy (Verified 05/25/18 21:29) Unknown she's not sure Penicillins Allergy (Verified 05/25/18 21:29) Rash sulfacetamide Allergy (Verified 05/20/18 18:42) Unknown unaware of the reaction telithromycin [From Ketek] Allergy (Verified 05/20/18 18:42) Unknown unaware of reaction hydrocodone [From Vicodin] Adverse Reaction (Verified 05/20/18 18:42) nausea/vomitting propoxyphene [From Darvocet-N] Adverse Reaction (Verified 05/20/18 18:42) n/v tramadol Adverse Reaction (Verified 05/20/18 18:42) n/v Home Medications: Ambulatory Orders Medication Instructions Recorded Melatonin/Pyridoxine [Melatonin 5 10 mg PO QHS PRN 06/12/16 mg Tablet] Carvedilol [Coreg (Beta [place])] 6.25 mg PO BID 11/29/16 Trihexyphenidyl HCl 1 mg PO TID 11/29/16 Calcium Carbonate [Tums] 1,000 mg PO Q4H PRN PRN #0 tablet 12/13/16 Polyvinyl Alcohol [Artificial 1 drop EACH EYE DAILY PRN PRN 07/13/17 Tears] Ondansetron [Zofran Odt] 4 mg PO Q8H PRN PRN #30 08/12/17 levETIRAcetam tablet [Keppra 500 mg PO QHS tablet 08/30/17 tablet] Carbidopa/Levodopa 25/100 [Sinemet 2 tablet PO TIDAC #30 09/09/17 25/100] Carbidopa/Levodopa 50/200 [Sinemet 1 tablet PO QHS #30 09/09/17 CR 50/200] Pantoprazole Sodium [Protonix] 40 mg PO DAILY #30 tablet 09/09/17 Aspirin [Aspirin EC] 81 mg PO DAILY 10/26/17 Citalopram [Celexa] 40 mg PO DAILY 10/26/17 Cholecalciferol (Vitamin D3) 5,000 unit PO DAILY 05/20/18 [Vitamin D3] Gabapentin [Neurontin] 200 mg PO TIDCM 05/20/18 Oxybutynin [Ditropan] 10 mg PO DAILY 05/20/18 Polyethylene Glycol 3350 [Miralax] 17 gm PO DAILY 05/20/18 hydrOXYzine pamoate capsule 25 - 50 mg PO QHS PRN 05/20/18 [Vistaril pamoate capsule] Acetaminophen 500 mg PO Q4H PRN 05/25/18 Ibuprofen 200 mg PO Q4H PRN PRN 05/25/18 Oxycodone [Oxyir] 5 mg PO Q6H PRN PRN 05/25/18 Surgical History: hysterectomy, total knee arthroplasty - left 2004, - - Left hip ORIF 07/11/2017. Psychiatric History: Anxiety - would benefit from treatment, however is very reluctant to try new medications, Depression PASTORAL ASSISTANT History: No pertinent PASTORAL ASSISTANT history Smoking Status: Never smoker Alcohol: None - *Family History Maternal History Items: Heart Disease - ceased age 81, - - Lung disease Paternal History Items: Heart Disease - age 66 Review of Systems Constitutional: Denies: Chills, Fever, Weight Change Eyes: Denies: Blurred vision, Pain HEENT: Denies: Head Aches, Sinus Congestion, Sinus Drainage Cardiovascular: Reports: Chest Pain Respiratory: Reports: Cough Gastrointestinal: Reports: Abdominal Pain Genitourinary: Denies: Dysuria Musculoskeletal: Reports: Shoulder Pain - Left side, - - Left chest pain Skin: Denies: Rash, Wounds Neurological: Reports: - - Unable to stand for orthostatic blood pressure check. Psychiatric: Denies: Anxiety, Depression, Homicidal Ideations, Suicidal Ideations Hematologic/ Lymphatic: Denies: Easy Bruising, Easy Bleeding VTE Information - Inpt Only VTE Present on Admission: No VTE Mechan Device Prophylaxis: None VTE Pharm Prophylaxis ordered?: Yes Patient Problems: Active and Suspected Problems Clavicular fracture (Acute) Multiple falls (Acute) Dehydration (Acute) - Physical Exam General: Alert, Oriented x3 - Oriented to months but not to the year., Cooperative Neck: Supple, No JVD, Negative Carotid Bruits Lungs: Clear to auscultation, Normal air movement Cardiovascular: Regular rate, No murmurs Abdomen: Bowel Sounds Present, Soft, Non Tender Extremities: Tenderness - Left shoulder and left upper chest., - - Restricted range of motion of left upper extremity and bilateral lower extremity. Right upper extremity with appropriate range of motion. Skin: No rashes, No breakdown Musculoskeletal: No Tenderness to Palpation of Joints or Extremities Lymphatic: No Cervical, Supraclavicular, or Inguinal Adenopathy Neurological: Cranial nerves II-XII grossly intact Psych/Mental Status: Normal Affect Vital Signs Temp Pulse Resp BP Pulse Ox 98.2 F 67 16 142/77 H 97 05/26/18 02:16 05/26/18 02:16 05/26/18 02:16 05/26/18 02:16 05/26/18 02:16 Oxygen Delivery Method Room Air Weight: 56.8 kg Body Mass Index (BMI) 22.8 Assessment/Plan All Active Problems Clavicular fracture (Acute) Multiple falls (Acute) Dehydration (Acute) Fall (Acute) Weakness generalized (Acute) The patient is a 77 year old F who lives in assisted living; and with a significant history of Parkinson's disease and hypertension who presented with multiple falls and radiographic evidence of new bilateral clavicular fracture. Bilateral clavicular fracture Tylenol has been scheduled As needed oxycodone and morphine ordered. Julio Cesar scheduled PT and OT evaluation consult Since she has a bilateral clavicular fracture will apply sling to the left side. Her left side is more painful. Certified Alcohol Drug Counselor consult to help with disposition after discharge. Agree with daughter that patient may not be able to take of herself unassisted living facility. She may require more help at this time. Multiple falls Likely due to her Parkinson disease and debility. However, will order vitamin D and vitamin B12 to make sure we are not missing anything. Dehydration Ketones in the urine Likely secondary to poor intake IV hydration. Ensure enlive ordered for poor intake. Parkinson's Disease Sinemet and trihexyphenidyl continued DVT prophylaxis Lovenox. Miscellaneous: Neurontin; Keppra and Celexa continued. Code Visit Inpatient E&M: 02735 Init Hosp L2
[2018-05-26] MEDS: oxyCODONE 5 MG Tablet PO ×2 (04:40→08:44)
[2018-05-26 05:50] LABS: Absolute Lymphocyte Count 1.42 X10^3/ul (0.83-4.51); Absolute Neutrophil Count 2.3 X10^3/uL (2.0-7.7); Basophil# 0.03 X10^3/uL; Basophil% 0.7 % (0-1); Eosinophil# 0.15 X10^3/uL; Eosinophils% 3.4 % (0-5); Hematocrit 36.4 % (37-47); Hemoglobin 12.1 g/dl (12.0-15.0); Lymphocyte # 1.42 X10^3/ul (4.0); Lymphocyte % 32.5 % (19-41); Mean Corp Hgb Conc 33.2 g/gl (32-36); Mean Corpuscular Hgb 28.8 pg (27.0-32.0); Mean Corpuscular Volume 86.7 fL (81-99); Mean Platelet Vol. 9.9 fl (6.2-12.0); Monocyte# 0.45 X10^3/uL; Monocyte% 10.3 % (0-10); Neutrophil # 2.32 X10^3/uL (2.7-7.7); Neutrophil % 53.1 % (47-70); Platelet Count 155 K/mm3 (150-450); RBC Distribution Width SD 43.6 fl (35.1-43.9); White Blood Count 4.4 K/mm3 (4.4-11.0)
[2018-05-26] MEDS: TRIHEXYPHENIDYL HCL 2 MG TABLET 1 MG PO ×3 (05:57→20:20)
[2018-05-26] MEDS: Acetaminophen 325 MG Tablet 650 MG PO ×2 (05:58→12:26)
[2018-05-26 06:05] LABS: Anion Gap 8 (5-15); BUN 14 mg/dL (7-18); BUN/Creat Ratio 26.8 RATIO (10-20); Calcium,Total 8.2 mg/dL (8.5-10.1); Chloride 111 mmol/L (98-107); Creatinine, Serum 0.52 mg/dL (0.55-1.02); EST Glomerular Filtration Rate 121 mL/min (>60); Est Glom Filt Rate - Afr Amer 146 mL/min (>60); Estimated Creatinine Clearance 37.26 ml/min; Glucose 84 mg/dL (74-106); Potassium 3.6 mmol/L (3.5-5.1); Sodium Level 144 mmol/L (136-145)
[2018-05-26 06:10] LABS: POSITIVE COUNT NO; POSITIVE DIFFERENTIAL NO; POSITIVE MORPHOLOGY NO
[2018-05-26] MEDS: Carbidopa/Levodopa 25/100 Tablet PO ×3 (06:23→15:57)
[2018-05-26 06:58] VITALS: O2SAT 92
[2018-05-26 08:17] VITALS: BP 149/72; PULSE 57; RESP 16; TEMP 36.6; O2SAT 97
[2018-05-26 08:38] LABS: Vitamin B12 240 pg/mL (211-911); Vitamin D,25 Hydroxy 62.2 ng/mL (29.95-100.01)
[2018-05-26] MEDS: Aspirin E.C. 81 MG Tablet PO (08:39)
[2018-05-26] MEDS: Gabapentin 100 MG Capsule 200 MG PO ×2 (08:39→12:25)
--- NOTE | 2018-05-26 09:09 | NURSING ---
TALKED WITH DR DINORAH ROBERTO ON THE PHONE ABOUT THE CONSULT AND HE SAID THAT HE ALREADY SPOKE WITH DR Joon ELIAS AND PT DOESN'T REQUIRE SURGERY AND HE GAVE HIS ORTHO RECOMMENDATIONS - SO HE WILL NOT BE COMING TO SEE THIS PT
[2018-05-26] MEDS: Carvedilol 6.25 MG Tablet PO ×2 (10:29→20:20)
[2018-05-26] MEDS: Citalopram 40 MG TABLET PO (10:30)
[2018-05-26] MEDS: Senna/Docusate Sodium 1 Tablet 2 TABLET PO ×2 (10:30→20:20)
[2018-05-26] MEDS: Pantoprazole Sodium 40 MG Tablet PO (10:30)
[2018-05-26] MEDS: Tolterodine Tartrate 2 MG CAP.SA PO (10:30)
[2018-05-26] MEDS: Enoxaparin 40 MG/0.4 ML Syringe SC (10:31)
[2018-05-26] MEDS: Ondansetron 4 MG/2 ML Vial IV (11:48)
--- NOTE | 2018-05-26 12:29 | CASEMGMT ---
Social Work Note Pt is from [facility]. SW in to speak with pt to confirm discharge plans. SW introduced self and role at [facility]. Pt is alert and orientated x3. Pt confirms that she is from [facility] and would like to return there at discharge. SW explained that pt may require too much assistance at this time to return to [facility] and may benefit from short term rehabilitation at [facility] before returning to [facility]. SW asked pt if she would be agreeable to SNF and pt states I don't know. Pt gave this worker permission to call her daughter Alecia. SW placed a call to pt's daughter Alecia and left her a message. SW waiting for call back from pt's daughter. SW will attempt to see pt later today again if Alecia is at [facility] or will attempt to call Alecia as time allows. JOANIE spoke with RN at [facility] who states that pt's level of care is too great at this time and they feel pt would benefit from rehabilitation before returning. Plan: Return to [facility] vs. SNF Gila Workman FEED MILL SUPERVISOR, HAND PATTERN MARKER
--- NOTE | 2018-05-26 14:16 | CASEMGMT ---
Social Work Note JOANIE placed a call to pt's daughter Alecia. Alecia states that she would like a SNF in [place], [place]. JOANIE provided verbal list to Alecia of SNF in [place], [place]. Alecia states that she would like a referral sent to [facility] [place]. JOANIE educated Alecia on Medicare requirements and Medicare days at SNF. JOANIE also educated Sharon on long-term care at SNF and Medicaid only pays for long-term care. Alecia states understanding. JOANIE faxed referral to Chrissy at [facility] [place]. Projected discharge is for Medicare three midnight stays. Plan: [facility] [place] pending acceptance and three midnight stay Gila Workman ROAD ROLLER OPERATOR, CARTRIDGE ASSEMBLER
[2018-05-26] MEDS: Ibuprofen 200 MG Tablet PO (15:09)
[2018-05-26] MEDS: QUEtiapine 25 MG Tablet 12.5 MG PO ×2 (15:09→17:51)
[2018-05-26 15:54] VITALS: BP 139/63; PULSE 63; RESP 18; TEMP 37.1; O2SAT 97
--- NOTE | 2018-05-26 16:01 | PN_ITS ---
<Hayder Zhong - Last Filed: 05/26/18 16:03> Patient Problems: Active and Suspected Problems Clavicular fracture (Acute) Multiple falls (Acute) Dehydration (Acute) Subjective: Pt complains of urinary frequency, but UA is negative and post void is only 150cc. She has no fever or chills. She has pain in her left clavicle. No pain in the right clavicle. She has a resting tremor. She does follow a neurologist for parkinson however she cannot remember who it is. She has been falling at assisted living despite having PTOT there. She is reluctant to consider long term. - Physical Exam General: Alert, Oriented x3, Cooperative HEENT: Atraumatic, PERRLA, EOMI, Normocephalic Neck: Supple, No JVD, Negative Carotid Bruits Lungs: Clear to auscultation, Normal air movement Cardiovascular: Regular rate, No murmurs Abdomen: Bowel Sounds Present, Soft, Non Tender Extremities: No edema, Capillary Refill Less than 3 Seconds Skin: No rashes, No breakdown Musculoskeletal: No Tenderness to Palpation of Joints or Extremities, - - no tenderness over the right clavicle. Left arm in sling swath. Neurological: Cranial nerves II-XII grossly intact, - - resting tremor Psych/Mental Status: Normal Affect, Appropriate Vital Signs Temp Pulse Resp BP Pulse Ox 97.8 F 57 L 16 149/72 H 97 05/26/18 08:17 05/26/18 08:17 05/26/18 08:17 05/26/18 08:17 05/26/18 08:17 Oxygen Delivery Method Room Air Weight: 125 lb 3.561 oz Body Mass Index (BMI) 22.8 Intake and Output for Last 24 Hours 05/24/18 05/25/18 05/26/18 23:59 23:59 23:59 Intake Total 1744 / 1744 Output Total 650 / 650 Balance 1094 / 1094 Laboratory Tests Past 24 Hrs 05/26/18 05/26/18 05/26/18 05:30 05:30 05:30 WBC 4.4 RBC 4.20 Hgb 12.1 Hct 36.4 L MCV 86.7 MCH 28.8 MCHC 33.2 RDW 14.0 RDW Differential 43.6 Plt Count 155 MPV 9.9 Immature Gran % (Auto) 0.000 Neut % (Auto) 53.1 Lymph % (Auto) 32.5 Pleasants % (Auto) 10.3 H Eos % (Auto) 3.4 Baso % (Auto) 0.7 Absolute Neuts (auto) 2.3 Absolute Lymphs (auto) 1.42 Total Counted Not Reportable Sodium 144 Potassium 3.6 Chloride 111 H Carbon Dioxide 25.0 Anion Gap 8 BUN 14 Creatinine 0.52 L Estim Creat Clear Calc 37.26 Est GFR (MDRD) Af Amer 146 Est GFR (MDRD) Non-Af 121 BUN/Creatinine Ratio 26.8 H Glucose 84 Calcium 8.2 L Vitamin B12 240 Vitamin D 25-Hydroxy 62.2 Vit D 1,25-Dihydroxy 05/26/ 05:30 WBC RBC Hgb Hct MCV MCH MCHC RDW RDW Differential Plt Count MPV Immature Gran % (Auto) Neut % (Auto) Lymph % (Auto) Pleasants % (Auto) Eos % (Auto) Baso % (Auto) Absolute Neuts (auto) Absolute Lymphs (auto) Total Counted Sodium Potassium Chloride Carbon Dioxide Anion Gap BUN Creatinine Estim Creat Clear Calc Est GFR (MDRD) Af Amer Est GFR (MDRD) Non-Af BUN/Creatinine Ratio Glucose Calcium Vitamin B12 Vitamin D 25-Hydroxy Vit D 1,25-Dihydroxy Pending Medical Necessity - Tobacco Use Smoking Status: Never smoker Assessment/Plan All Active Problems Clavicular fracture (Acute) Multiple falls (Acute) Dehydration (Acute) Fall (Acute) Weakness generalized (Acute) 1. Debility, fall, with left clavicle fracture - ortho consulted. Sling in place. PRN pain meds. Vit D normal. B12 Normal. CT head neg.CXR neg, CT C spine neg, chest CT with old compression fractures, left clavicle fracture. Continue PTOT. Pt doing poorly with assisted living and PTOT there, needs SNF. 2. Parkinson contributing to above - continue home meds - sinemet. Neuro follow up as outpatient. 3. Agitation - limit anticholinergics, prn low dose seroquel. Suspect underlying dementia. She has been on seroquel in the past while in the rehab unit. 4. HTN - stable 5. Depression/anxiety/insomnia - home meds. 6. Hx Seizures - keppra DVT ppx: lovenox DC planning: SNF This patient was seen by Hayder Zhong PA-C under the supervision of Doctor Allan. <Hunter Lemus E - Last Filed: 05/26/18 16:40> - Physical Exam Vital Signs Temp Pulse Resp BP Pulse Ox 98.7 F 63 18 139/63 H 97 05/26/18 15:54 05/26/18 15:54 05/26/18 15:54 05/26/18 15:54 05/26/18 15:54 Oxygen Delivery Method Room Air Weight: 125 lb 3.561 oz Body Mass Index (BMI) 22.8 Intake and Output for Last 24 Hours 05/24/18 05/25/18 05/26/18 23:59 23:59 23:59 Intake Total 1744 / 1744 Output Total 650 / 650 Balance 1094 / 1094 Laboratory Tests Past 24 Hrs 05/26/18 05/26/18 05/26/18 05:30 05:30 05:30 WBC 4.4 RBC 4.20 Hgb 12.1 Hct 36.4 L MCV 86.7 MCH 28.8 MCHC 33.2 RDW 14.0 RDW Differential 43.6 Plt Count 155 MPV 9.9 Immature Gran % (Auto) 0.000 Neut % (Auto) 53.1 Lymph % (Auto) 32.5 Pleasants % (Auto) 10.3 H Eos % (Auto) 3.4 Baso % (Auto) 0.7 Absolute Neuts (auto) 2.3 Absolute Lymphs (auto) 1.42 Total Counted Not Reportable Sodium 144 Potassium 3.6 Chloride 111 H Carbon Dioxide 25.0 Anion Gap 8 BUN 14 Creatinine 0.52 L Estim Creat Clear Calc 37.26 Est GFR (MDRD) Af Amer 146 Est GFR (MDRD) Non-Af 121 BUN/Creatinine Ratio 26.8 H Glucose 84 Calcium 8.2 L Vitamin B12 240 Vitamin D 25-Hydroxy 62.2 Vit D 1,25-Dihydroxy 05/26/18 05:30 WBC RBC Hgb Hct MCV MCH MCHC RDW RDW Differential Plt Count MPV Immature Gran % (Auto) Neut % (Auto) Lymph % (Auto) Pleasants % (Auto) Eos % (Auto) Baso % (Auto) Absolute Neuts (auto) Absolute Lymphs (auto) Total Counted Sodium Potassium Chloride Carbon Dioxide Anion Gap BUN Creatinine Estim Creat Clear Calc Est GFR (MDRD) Af Amer Est GFR (MDRD) Non-Af BUN/Creatinine Ratio Glucose Calcium Vitamin B12 Vitamin D 25-Hydroxy Vit D 1,25-Dihydroxy Pending Assessment/Plan Hospitalist note: I am seeing this patient in conjunction with Hayder Zhong. I independently seen and examined the patient. Progress note above reviewed, laboratory data and imaging studies reviewed and I agree with above treatment plan. Patient was admitted for recurrent falls. Imaging study revealed left clavicular fracture. She has history of Parkinson's disease, patient is seeking an unsteady. Her vital signs are stable. Her routine blood work was unremarkable. Imaging studies including CT scan brain, chest x-ray, CT scan cervical spine and CT scan chest reviewed. Plan for pain control, patient will probably need placement to intermediate facility.
[2018-05-26] MEDS: 0.9% NaCl Peripheral Flush Adult/Peds IV (20:17)
[2018-05-26] MEDS: Haloperidol Lactate 5 MG/ML Vial 1 MG IM (20:17)
[2018-05-26] MEDS: CARBIDOPA/LEVODOPA CR 50/200 Tablet PO (20:20)
[2018-05-26] MEDS: levETIRAcetam 500 MG Tablet PO (20:20)
[2018-05-26 20:30] VITALS: BP 160/90; PULSE 78; RESP 18; TEMP 37.1; O2SAT 98
[2018-05-27] MEDS: Acetaminophen 650 MG/20 ML UDC PO ×2 (00:49→06:59)
[2018-05-27] MEDS: Haloperidol Lactate 5 MG/ML Vial 1 MG IM (00:50)
[2018-05-27] MEDS: Ondansetron ODT 4 MG Tablet PO (01:08)
[2018-05-27 01:09] VITALS: BP 156/94; PULSE 66; RESP 16; TEMP 36.6; O2SAT 95
[2018-05-27] MEDS: QUEtiapine 25 MG Tablet 12.5 MG PO (04:59)
[2018-05-27] MEDS: TRIHEXYPHENIDYL HCL 2 MG TABLET 1 MG PO ×3 (04:59→22:09)
[2018-05-27] MEDS: Carbidopa/Levodopa 25/100 Tablet PO ×3 (04:59→15:05)
[2018-05-27] MEDS: Ibuprofen 200 MG Tablet PO ×3 (05:00→22:10)
--- NOTE | 2018-05-27 07:04 | NURSING ---
Patient very upset with staff that we are not letting her walk her dog. Slammed fist on to side table very hard. No obvious injury to hand. CHIEF OPERATOR sitter instructed to sit closer to patient to prevent injury. [place] placed on table to prevent injury.
[2018-05-27 07:35] VITALS: O2SAT 95
--- NOTE | 2018-05-27 08:54 | CASEMGMT ---
Social Work Note JOANIE received message from Chrissy at [facility] [place] stating that she is able to accept pt . SW in to update pt of this. SW informed pt that this worker spoke with pt's daughter Alecia and Alecia wanted a referral made to [facility]. Pt states understanding and agreeable to [facility] short term for rehabilitation before returning to [facility]. Pt denied additional needs or concerns at this time. JOANIE placed a call to pt's daughter Alecia and left her a message informing her that pt has been accepted in to [facility] and pt will be discharged . Plan: [facility] skilled for short term rehabilitation Gila Workman LIQUID SUGAR FORTIFIER, ROVING TESTER LABORATORY
[2018-05-27] MEDS: Aspirin E.C. 81 MG Tablet PO (09:12)
[2018-05-27] MEDS: Gabapentin 100 MG Capsule 200 MG PO ×3 (09:12→17:51)
[2018-05-27 09:14] VITALS: BP 135/81; PULSE 71; RESP 16; TEMP 36.8; O2SAT 97
[2018-05-27] MEDS: Carvedilol 6.25 MG Tablet PO ×2 (09:20→22:09)
[2018-05-27] MEDS: Tolterodine Tartrate 2 MG CAP.SA PO (09:20)
[2018-05-27] MEDS: Citalopram 40 MG TABLET PO (09:20)
[2018-05-27] MEDS: Polyethylene Glycol 3350 17 GM PACKET PO (11:31)
[2018-05-27] MEDS: Enoxaparin 40 MG/0.4 ML Syringe SC (11:31)
[2018-05-27] MEDS: Senna/Docusate Sodium 1 Tablet 2 TABLET PO ×2 (11:32→22:09)
[2018-05-27] MEDS: Pantoprazole Sodium 40 MG Tablet PO (11:33)
--- NOTE | 2018-05-27 11:59 | NURSING ---
Dr. Kohli aware of consult.
--- NOTE | 2018-05-27 13:35 | PCM.PROGNOTE ---
<Hayder Zhong - Last Filed: 05/27/18 13:35> Patient Problems: Active and Suspected Problems Clavicular fracture (Acute) Multiple falls (Acute) Dehydration (Acute) Subjective: Mild pain left clavicle. None right. Remains mildly agitated, not following instructions, forgetful, climbing out of bed. Received haldol and seroquel. - Physical Exam General: Alert, Cooperative, - - frail HEENT: Atraumatic, PERRLA, EOMI, Normocephalic Neck: Supple, No JVD, Negative Carotid Bruits Lungs: Clear to auscultation, Normal air movement Cardiovascular: Regular rate, No murmurs Abdomen: Bowel Sounds Present, Soft, Non Tender Extremities: No edema, Capillary Refill Less than 3 Seconds Skin: No rashes, No breakdown Musculoskeletal: No Tenderness to Palpation of Joints or Extremities, - - left clavicular tenderness , none right. Neurological: Cranial nerves II-XII grossly intact Psych/Mental Status: Agitated, Anxious, Alert and oriented to time, place, person, mood and affect Vital Signs Temp Pulse Resp BP Pulse Ox 98.3 F 71 16 135/81 H 97 05/27/18 09:14 05/27/18 09:14 05/27/18 09:14 05/27/18 09:14 05/27/18 09:14 Oxygen Delivery Method Room Air Weight: 125 lb 3.561 oz Body Mass Index (BMI) 22.8 Intake and Output for Last 24 Hours 05/25/18 05/26/18 05/27/18 23:59 23:59 23:59 Intake Total 2316 / 2316 700 / 700 Output Total 1320 / 1320 1300 / 1300 Balance 996 / 996 -600 / -600 Microbiology Past 72 Hours 05/26/18 20:10 Urine Culture - Preliminary Urine, Catheterized Gram negative gabino Medical Necessity - Tobacco Use Smoking Status: Never smoker Assessment/Plan All Active Problems Clavicular fracture (Acute) Multiple falls (Acute) Dehydration (Acute) Fall (Acute) Weakness generalized (Acute) 1. Debility, fall, with left clavicle fracture - ortho consulted. Sling in place. PRN pain meds. Vit D normal. B12 Normal. CT head neg.CXR neg, CT C spine neg, chest CT with old compression fractures, left clavicle fracture. Continue PTOT. Pt doing poorly with assisted living and PTOT there, needs SNF. 2. Parkinson contributing to above - continue home meds - sinemet. Neuro follow up as outpatient. 3. Agitation - limit anticholinergics. prn seroquel, haldol. Suspect underlying dementia. She has been on seroquel in the past while in the rehab unit. 4. HTN - stable 5. Depression/anxiety/insomnia - home meds. 6. Hx Seizures - keppra DVT ppx: lovenox DC planning: SNF This patient was seen by Hayder Zhong PA-C under the supervision of Doctor Allan. <Hunter Lemus E - Last Filed: 05/27/18 14:29> - Physical Exam Vital Signs Temp Pulse Resp BP Pulse Ox 98.3 F 71 16 135/81 H 97 05/27/18 09:14 05/27/18 09:14 05/27/18 09:14 05/27/18 09:14 05/27/18 09:14 Oxygen Delivery Method Room Air Weight: 125 lb 3.561 oz Body Mass Index (BMI) 22.8 Intake and Output for Last 24 Hours 05/25/18 05/26/18 05/27/18 23:59 23:59 23:59 Intake Total 2316 / 2316 700 / 700 Output Total 1320 / 1320 1300 / 1300 Balance 996 / 996 -600 / -600 Microbiology Past 72 Hours 05/26/18 20:10 Urine Culture - Preliminary Urine, Catheterized Gram negative gabino Assessment/Plan Hospitalist note: I am seeing this patient in conjunction with Hayder Zhong. I independently seen and examined the patient. Progress note above, laboratory data and imaging studies reviewed and I agree with above treatment plan. Today, patient look more comfortable but still agitated and still complaining of left clavicular pain. Overnight, she was agitated and restless. Her vital signs are stable. - Physical Exam General: Alert, disoriented, Cooperative, mildly agitated. HEENT: Atraumatic, PERRLA, EOMI. Neck: Supple, No JVD, Negative Carotid Bruits, Trachea Midline, Thyroid Normal. Lungs: Clear to auscultation, Normal air movement, No rhonchi, No wheeze, No rales. Cardiovascular: Regular rate, Regular Rhythm, Normal S1, Normal S2, PMI Normal. Abdomen: Bowel Sounds Present, Soft, Non Tender, Non-Distended, No Hepato-splenomegaly. Extremities: No clubbing, No cyanosis, No edema Skin: No rashes, No breakdown Neurological: Neuro grossly intact Vital Signs are stable. Assessment and plan: #1 acute traumatic mildly displaced distal left femoral neck fracture: Due to fall secondary to debility due to Parkinson's disease. She is on OxyIR as needed for pain. Orthopedic surgery consulted. #2 Parkinson's disease: This is contributing to her frequent falls and debility. Patient is shaky, resting tremors. Continue with Sinemet, trihexyphenidyl. #3 instability/frequent falls/physical debility: Multifactorial secondary to age, medical problems including Parkinson's disease. Patient lives at the assisted living. Patient will likely need placement to prison facility. #4 other chronic medical problems: Stable, continue current medications as above. This note was generated with [employer] dictation software. It may contain incorrect words, spelling, and punctuation that were not noted in checking the note before signing. Code Visit Inpatient E&M: 42577 Subs Hosp L2
--- NOTE | 2018-05-27 13:39 | PN_ITS ---
<Hayder Zhong - Last Filed: 05/27/18 13:35> Patient Problems: Active and Suspected Problems Clavicular fracture (Acute) Multiple falls (Acute) Dehydration (Acute) Subjective: Mild pain left clavicle. None right. Remains mildly agitated, not following instructions, forgetful, climbing out of bed. Received haldol and seroquel. - Physical Exam General: Alert, Cooperative, - - frail HEENT: Atraumatic, PERRLA, EOMI, Normocephalic Neck: Supple, No JVD, Negative Carotid Bruits Lungs: Clear to auscultation, Normal air movement Cardiovascular: Regular rate, No murmurs Abdomen: Bowel Sounds Present, Soft, Non Tender Extremities: No edema, Capillary Refill Less than 3 Seconds Skin: No rashes, No breakdown Musculoskeletal: No Tenderness to Palpation of Joints or Extremities, - - left clavicular tenderness , none right. Neurological: Cranial nerves II-XII grossly intact Psych/Mental Status: Agitated, Anxious, Alert and oriented to time, place, person, mood and affect Vital Signs Temp Pulse Resp BP Pulse Ox 98.3 F 71 16 135/81 H 97 05/27/18 09:14 05/27/18 09:14 05/27/18 09:14 05/27/18 09:14 05/27/18 09:14 Oxygen Delivery Method Room Air Weight: 125 lb 3.561 oz Body Mass Index (BMI) 22.8 Intake and Output for Last 24 Hours 05/25/18 05/26/18 05/27/18 23:59 23:59 23:59 Intake Total 2316 / 2316 700 / 700 Output Total 1320 / 1320 1300 / 1300 Balance 996 / 996 -600 / -600 Microbiology Past 72 Hours 05/26/18 20:10 Urine Culture - Preliminary Urine, Catheterized Gram negative gabino Medical Necessity - Tobacco Use Smoking Status: Never smoker Assessment/Plan All Active Problems Clavicular fracture (Acute) Multiple falls (Acute) Dehydration (Acute) Fall (Acute) Weakness generalized (Acute) 1. Debility, fall, with left clavicle fracture - ortho consulted. Sling in place. PRN pain meds. Vit D normal. B12 Normal. CT head neg.CXR neg, CT C spine neg, chest CT with old compression fractures, left clavicle fracture. Continue PTOT. Pt doing poorly with assisted living and PTOT there, needs SNF. 2. Parkinson contributing to above - continue home meds - sinemet. Neuro follow up as outpatient. 3. Agitation - limit anticholinergics. prn seroquel, haldol. Suspect underlying dementia. She has been on seroquel in the past while in the rehab unit. 4. HTN - stable 5. Depression/anxiety/insomnia - home meds. 6. Hx Seizures - keppra DVT ppx: lovenox DC planning: SNF This patient was seen by Hayder Zhong PA-C under the supervision of Doctor Allan. <Hunter Lemus E - Last Filed: 05/27/18 14:29> - Physical Exam Vital Signs Temp Pulse Resp BP Pulse Ox 98.3 F 71 16 135/81 H 97 05/27/18 09:14 05/27/18 09:14 05/27/18 09:14 05/27/18 09:14 05/27/18 09:14 Oxygen Delivery Method Room Air Weight: 125 lb 3.561 oz Body Mass Index (BMI) 22.8 Intake and Output for Last 24 Hours 05/25/18 05/26/18 05/27/18 23:59 23:59 23:59 Intake Total 2316 / 2316 700 / 700 Output Total 1320 / 1320 1300 / 1300 Balance 996 / 996 -600 / -600 Microbiology Past 72 Hours 05/26/18 20:10 Urine Culture - Preliminary Urine, Catheterized Gram negative gabino Assessment/Plan Hospitalist note: I am seeing this patient in conjunction with Hayder Zhong. I independently seen and examined the patient. Progress note above, laboratory data and imaging studies reviewed and I agree with above treatment plan. Today, patient look more comfortable but still agitated and still complaining of left clavicular pain. Overnight, she was agitated and restless. Her vital signs are stable. - Physical Exam General: Alert, disoriented, Cooperative, mildly agitated. HEENT: Atraumatic, PERRLA, EOMI. Neck: Supple, No JVD, Negative Carotid Bruits, Trachea Midline, Thyroid Normal. Lungs: Clear to auscultation, Normal air movement, No rhonchi, No wheeze, No rales. Cardiovascular: Regular rate, Regular Rhythm, Normal S1, Normal S2, PMI Normal. Abdomen: Bowel Sounds Present, Soft, Non Tender, Non-Distended, No Hepato- splenomegaly. Extremities: No clubbing, No cyanosis, No edema Skin: No rashes, No breakdown Neurological: Neuro grossly intact Vital Signs are stable. Assessment and plan: #1 acute traumatic mildly displaced distal left femoral neck fracture: Due to fall secondary to debility due to Parkinson's disease. She is on OxyIR as needed for pain. Orthopedic surgery consulted. #2 Parkinson's disease: This is contributing to her frequent falls and debility. Patient is shaky, resting tremors. Continue with Sinemet, trihexyphenidyl. #3 instability/frequent falls/physical debility: Multifactorial secondary to age , medical problems including Parkinson's disease. Patient lives at the assisted living. Patient will likely need placement to nursing home facility. #4 other chronic medical problems: Stable, continue current medications as above. This note was generated with [employer] dictation software. It may contain incorrect words, spelling, and punctuation that were not noted in checking the note before signing. Code Visit Inpatient E&M: 56282 Subs Hosp L2
[2018-05-27 14:52] VITALS: BP 146/99; PULSE 69; RESP 18; TEMP 36.6; O2SAT 97
[2018-05-27] MEDS: QUEtiapine 25 MG Tablet PO (17:51)
[2018-05-27] MEDS: 0.9% NaCl Peripheral Flush Adult/Peds IV (22:09)
[2018-05-27] MEDS: levETIRAcetam 500 MG Tablet PO (22:09)
[2018-05-27] MEDS: CARBIDOPA/LEVODOPA CR 50/200 Tablet PO (22:09)
[2018-05-27 22:10] VITALS: BP 157/95; PULSE 75; RESP 18; TEMP 36.6; O2SAT 97
[2018-05-27] MEDS: Zolpidem Tartrate 5 MG Tablet PO (22:13)
[2018-05-27] MEDS: Ceftriaxone 1 GM/50 ML BAG IV (22:14)
[2018-05-28 04:00] VITALS: BP 153/79; PULSE 65; RESP 16; TEMP 37; O2SAT 98
[2018-05-28] MEDS: Carbidopa/Levodopa 25/100 Tablet PO ×3 (06:14→15:42)
[2018-05-28] MEDS: TRIHEXYPHENIDYL HCL 2 MG TABLET 1 MG PO ×3 (06:14→22:03)
[2018-05-28] MEDS: Acetaminophen 650 MG/20 ML UDC PO ×2 (06:14→15:42)
--- NOTE | 2018-05-28 07:06 | PN.ORTHO_ITS ---
Patient Problems: Active and Suspected Problems Clavicular fracture (Acute) Multiple falls (Acute) Dehydration (Acute) Subjective: ORTHOPEDIC CONSULT Patient has had multiple fall at assisted living recently. Most recently about two days ago causing pain in the left shoulder. Denies any pain elsewhere. Denies N/T/P. Patient is a rather poor historian. PMHx,PSHx Medications, Allergies, ROS and family Hx reviewed as per intake H&P. - Physical Exam General: Alert, No apparent distress HEENT: Atraumatic Oral: Moist Mucosa Neck: Supple Extremities: Tenderness - Left clavicle with ecchymosis and swelling. No pain, swelling or ecchymosis at right clavicle. Able to move RUE without pain. No pain to palpation of other areas of the axial or appendicular skeleton. Neurological: Neuro grossly intact - Tremor consistent with previous Parkinson' s dx Vital Signs Temp Pulse Resp BP Pulse Ox 98.6 F 65 16 153/79 H 98 05/28/18 04:00 05/28/18 04:00 05/28/18 04:00 05/28/18 04:00 05/28/18 04:00 Oxygen Delivery Method Room Air Weight: 125 lb 3.561 oz Body Mass Index (BMI) 22.8 Intake and Output for Last 24 Hours 05/26/18 05/27/18 05/28/18 23:59 23:59 23:59 Intake Total 2316 / 2316 1100 / 1100 560 / 560 Output Total 1320 / 1320 1700 / 1700 500 / 500 Balance 996 / 996 -600 / -600 60 / 60 Microbiology Past 72 Hours 05/26/18 20:10 Urine Culture - Preliminary Urine, Catheterized Gram negative gabino Medical Necessity - Tobacco Use Smoking Status: Never smoker Assessment/Plan All Active Problems Clavicular fracture (Acute) Multiple falls (Acute) Dehydration (Acute) Fall (Acute) Weakness generalized (Acute) Reviewed imaging studies. Definite new clavicle fracture on left, questionable old fx of clavicle on right. Will get dedicated clavicle xrays. Continue sling on left Nonoperative treatment recommended. Will follow as outpatient. Will likely take 6-8 weeks to heal.
--- NOTE | 2018-05-28 07:10 | RAD_ITS ---
STUDY: X-RAY - BILATERAL CLAVICLES REASON FOR EXAM: Female, 77 years old. Pain. TECHNIQUE: 2 views of the right clavicle. 2 views of the left clavicle. COMPARISON: None. FINDINGS: Normal right clavicle. Normal right acromioclavicular articulation. Normal right sternoclavicular articulation. Nondisplaced spiral fracture of the mid lateral portion of the left clavicle. Normal left acromioclavicular articulation. Normal left sternoclavicular articulation. Increased markings at the lung apices. RAD/Clavicle IMPRESSION: Nondisplaced oblique fracture of the mid lateral aspect of the left clavicle. Electronically Signed: Martinez Garcia MD at 11:27 EDT Tel [phone], Service support ,
[2018-05-28 10:00] VITALS: BP 123/73; PULSE 66; RESP 16; TEMP 37.1; O2SAT 95
[2018-05-28] MEDS: Aspirin E.C. 81 MG Tablet PO (10:13)
[2018-05-28] MEDS: Gabapentin 100 MG Capsule 200 MG PO ×3 (10:14→19:37)
[2018-05-28] MEDS: Citalopram 40 MG TABLET PO (10:14)
[2018-05-28] MEDS: Carvedilol 6.25 MG Tablet PO ×2 (10:14→22:03)
[2018-05-28] MEDS: Polyethylene Glycol 3350 17 GM PACKET PO (10:15)
[2018-05-28] MEDS: Tolterodine Tartrate 2 MG CAP.SA PO (10:15)
[2018-05-28] MEDS: Pantoprazole Sodium 40 MG Tablet PO (10:15)
[2018-05-28] MEDS: Enoxaparin 40 MG/0.4 ML Syringe SC (10:15)
[2018-05-28] MEDS: Senna/Docusate Sodium 1 Tablet 2 TABLET PO ×2 (10:15→22:03)
[2018-05-28] MEDS: Ibuprofen 200 MG Tablet PO ×2 (10:18→22:03)
--- NOTE | 2018-05-28 10:29 | PCM.PROGNOTE ---
<Hayder Zhong - Last Filed: 05/28/18 10:29> Patient Problems: Active and Suspected Problems Clavicular fracture (Acute) Multiple falls (Acute) Dehydration (Acute) UTI (urinary tract infection) (Acute) Subjective: No fevers or chills. She does have burning with urination. She is mildly confused. She has a hx of multiple UTIs. No abdominal pain. Pain in left clavicle is improved. - Physical Exam General: Alert, Oriented x3, Cooperative HEENT: Atraumatic, PERRLA, EOMI, Normocephalic Neck: Supple, No JVD, Negative Carotid Bruits Lungs: Clear to auscultation, Normal air movement Cardiovascular: Regular rate, No murmurs Abdomen: Bowel Sounds Present, Soft, Non Tender Extremities: No edema, Capillary Refill Less than 3 Seconds Skin: No rashes, No breakdown Musculoskeletal: No Tenderness to Palpation of Joints or Extremities Neurological: Cranial nerves II-XII grossly intact Psych/Mental Status: Normal Affect, Appropriate, Alert and oriented to time, place, person, mood and affect Vital Signs Temp Pulse Resp BP Pulse Ox 98.7 F 66 16 123/73 H 95 05/28/18 10:00 05/28/18 10:00 05/28/18 10:00 05/28/18 10:00 05/28/18 10:00 Oxygen Delivery Method Room Air Weight: 125 lb 3.561 oz Body Mass Index (BMI) 22.8 Intake and Output for Last 24 Hours 05/26/18 05/27/18 05/28/18 23:59 23:59 23:59 Intake Total 2316 / 2316 1100 / 1100 560 / 560 Output Total 1320 / 1320 1700 / 1700 500 / 500 Balance 996 / 996 -600 / -600 60 / 60 Microbiology Past 72 Hours 05/26/18 20:10 Urine Culture - Preliminary Urine, Catheterized Escherichia coli Medical Necessity - Tobacco Use Smoking Status: Never smoker Assessment/Plan All Active Problems Clavicular fracture (Acute) Multiple falls (Acute) Dehydration (Acute) UTI (urinary tract infection) (Acute) Fall (Acute) Weakness generalized (Acute) 1. Debility, fall, with left clavicle fracture - ortho consulted. Sling in place. PRN pain meds. Vit D normal. B12 Normal. CT head neg.CXR neg, CT C spine neg, chest CT with old compression fractures, left clavicle fracture. Continue PTOT. Pt doing poorly with assisted living and PTOT there, needs SNF. 2. UTI - does have dysuria. e coli, resistant. Multiple allergies. Will consult ID. 3. Parkinson contributing to above - continue home meds - sinemet. Neuro follow up as outpatient. 4. Agitation - limit anticholinergics. prn seroquel, haldol. Suspect underlying dementia. She has been on seroquel in the past while in the rehab unit. 5. HTN - stable 6. Depression/anxiety/insomnia - home meds. 7. Hx Seizures - keppra DVT ppx: lovenox DC planning: to SNF tomorrow. This patient was seen by Hayder Zhong PA-C under the supervision of Doctor Allan. <Hunter Lemus E - Last Filed: 05/28/18 14:09> - Physical Exam Vital Signs Temp Pulse Resp BP Pulse Ox 98.7 F 66 16 123/73 H 95 05/28/18 10:00 05/28/18 10:00 05/28/18 10:00 05/28/18 10:00 05/28/18 10:00 Oxygen Delivery Method Room Air Weight: 125 lb 3.561 oz Body Mass Index (BMI) 22.8 Intake and Output for Last 24 Hours 05/26/18 05/27/18 05/28/18 23:59 23:59 23:59 Intake Total 2316 / 2316 1100 / 1100 560 / 560 Output Total 1320 / 1320 1700 / 1700 500 / 500 Balance 996 / 996 -600 / -600 60 / 60 Microbiology Past 72 Hours 05/26/18 20:10 Urine Culture - Preliminary Urine, Catheterized Escherichia coli Assessment/Plan Hospitalist note: I am seeing this patient in conjunction with Hayder Zhong. I independently seen and examined the patient. Progress note above reviewed and I agree with above treatment plan. Today, patient look more comfortable, having less left clavicle pain, improved. She complains of dysuria, mild. Her vital signs are stable. Urine culture revealed ESBL E. coli. She is afebrile, no leukocytosis. - Physical Exam General: Alert, disoriented, Cooperative. HEENT: Atraumatic, PERRLA, EOMI. Neck: Supple, No JVD, Negative Carotid Bruits, Trachea Midline, Thyroid Normal. Lungs: Clear to auscultation, Normal air movement, No rhonchi, No wheeze, No rales. Cardiovascular: Regular rate, Regular Rhythm, Normal S1, Normal S2, PMI Normal. Abdomen: Bowel Sounds Present, Soft, Non Tender, Non-Distended, No Hepato-splenomegaly. Extremities: No clubbing, No cyanosis, No edema Skin: No rashes, No breakdown Neurological: Neuro grossly intact Vital Signs are stable. Assessment and plan: #1 acute traumatic mildly displaced distal left femoral neck fracture: Due to fall secondary to debility due to Parkinson's disease. She is on OxyIR as needed for pain. Appreciate orthopedic surgery recommendations, continue arm sling on the left. #2 ESBL E. coli probable acute cystitis: In context of history of recurrent UTIs. At this time, his she is afebrile, no leukocytosis. Infectious disease consulted. #3 Parkinson's disease: This is contributing to her frequent falls and debility. Patient is shaky, resting tremors. Continue with Sinemet, trihexyphenidyl. #3 instability/frequent falls/physical debility: Multifactorial secondary to age, medical problems including Parkinson's disease. Patient lives at the assisted living. Patient will need placement to custodial facility. #4 other chronic medical problems: Stable, continue current medications as above. This note was generated with [employer] dictation software. It may contain incorrect words, spelling, and punctuation that were not noted in checking the note before signing. Code Visit Inpatient E&M: 82242 Subs Hosp L2
[2018-05-28] MEDS: Ceftriaxone 1 GM/50 ML BAG IV (10:30)
--- NOTE | 2018-05-28 10:36 | PN_ITS ---
<Hayder Zhong - Last Filed: 05/28/18 10:29> Patient Problems: Active and Suspected Problems Clavicular fracture (Acute) Multiple falls (Acute) Dehydration (Acute) UTI (urinary tract infection) (Acute) Subjective: No fevers or chills. She does have burning with urination. She is mildly confused. She has a hx of multiple UTIs. No abdominal pain. Pain in left clavicle is improved. - Physical Exam General: Alert, Oriented x3, Cooperative HEENT: Atraumatic, PERRLA, EOMI, Normocephalic Neck: Supple, No JVD, Negative Carotid Bruits Lungs: Clear to auscultation, Normal air movement Cardiovascular: Regular rate, No murmurs Abdomen: Bowel Sounds Present, Soft, Non Tender Extremities: No edema, Capillary Refill Less than 3 Seconds Skin: No rashes, No breakdown Musculoskeletal: No Tenderness to Palpation of Joints or Extremities Neurological: Cranial nerves II-XII grossly intact Psych/Mental Status: Normal Affect, Appropriate, Alert and oriented to time, place, person, mood and affect Vital Signs Temp Pulse Resp BP Pulse Ox 98.7 F 66 16 123/73 H 95 05/28/18 10:00 05/28/18 10:00 05/28/18 10:00 05/28/18 10:00 05/28/18 10:00 Oxygen Delivery Method Room Air Weight: 125 lb 3.561 oz Body Mass Index (BMI) 22.8 Intake and Output for Last 24 Hours 05/26/18 05/27/18 05/28/18 23:59 23:59 23:59 Intake Total 2316 / 2316 1100 / 1100 560 / 560 Output Total 1320 / 1320 1700 / 1700 500 / 500 Balance 996 / 996 -600 / -600 60 / 60 Microbiology Past 72 Hours 05/26/18 20:10 Urine Culture - Preliminary Urine, Catheterized Escherichia coli Medical Necessity - Tobacco Use Smoking Status: Never smoker Assessment/Plan All Active Problems Clavicular fracture (Acute) Multiple falls (Acute) Dehydration (Acute) UTI (urinary tract infection) (Acute) Fall (Acute) Weakness generalized (Acute) 1. Debility, fall, with left clavicle fracture - ortho consulted. Sling in place. PRN pain meds. Vit D normal. B12 Normal. CT head neg.CXR neg, CT C spine neg, chest CT with old compression fractures, left clavicle fracture. Continue PTOT. Pt doing poorly with assisted living and PTOT there, needs SNF. 2. UTI - does have dysuria. e coli, resistant. Multiple allergies. Will consult ID. 3. Parkinson contributing to above - continue home meds - sinemet. Neuro follow up as outpatient. 4. Agitation - limit anticholinergics. prn seroquel, haldol. Suspect underlying dementia. She has been on seroquel in the past while in the rehab unit. 5. HTN - stable 6. Depression/anxiety/insomnia - home meds. 7. Hx Seizures - keppra DVT ppx: lovenox DC planning: to SNF tomorrow. This patient was seen by Hayder Zhong PA-C under the supervision of Doctor Allan. <Hunter Lemus E - Last Filed: 05/28/18 14:09> - Physical Exam Vital Signs Temp Pulse Resp BP Pulse Ox 98.7 F 66 16 123/73 H 95 05/28/18 10:00 05/28/18 10:00 05/28/18 10:00 05/28/18 10:00 05/28/18 10:00 Oxygen Delivery Method Room Air Weight: 125 lb 3.561 oz Body Mass Index (BMI) 22.8 Intake and Output for Last 24 Hours 05/26/18 05/27/18 05/28/18 23:59 23:59 23:59 Intake Total 2316 / 2316 1100 / 1100 560 / 560 Output Total 1320 / 1320 1700 / 1700 500 / 500 Balance 996 / 996 -600 / -600 60 / 60 Microbiology Past 72 Hours 05/26/18 20:10 Urine Culture - Preliminary Urine, Catheterized Escherichia coli Assessment/Plan Hospitalist note: I am seeing this patient in conjunction with Hayder Zhong. I independently seen and examined the patient. Progress note above reviewed and I agree with above treatment plan. Today, patient look more comfortable, having less left clavicle pain, improved. She complains of dysuria, mild. Her vital signs are stable. Urine culture revealed ESBL E. coli. She is afebrile, no leukocytosis. - Physical Exam General: Alert, disoriented, Cooperative. HEENT: Atraumatic, PERRLA, EOMI. Neck: Supple, No JVD, Negative Carotid Bruits, Trachea Midline, Thyroid Normal. Lungs: Clear to auscultation, Normal air movement, No rhonchi, No wheeze, No rales. Cardiovascular: Regular rate, Regular Rhythm, Normal S1, Normal S2, PMI Normal. Abdomen: Bowel Sounds Present, Soft, Non Tender, Non-Distended, No Hepato- splenomegaly. Extremities: No clubbing, No cyanosis, No edema Skin: No rashes, No breakdown Neurological: Neuro grossly intact Vital Signs are stable. Assessment and plan: #1 acute traumatic mildly displaced distal left femoral neck fracture: Due to fall secondary to debility due to Parkinson's disease. She is on OxyIR as needed for pain. Appreciate orthopedic surgery recommendations, continue arm sling on the left. #2 ESBL E. coli probable acute cystitis: In context of history of recurrent UTIs. At this time, his she is afebrile, no leukocytosis. Infectious disease consulted. #3 Parkinson's disease: This is contributing to her frequent falls and debility. Patient is shaky, resting tremors. Continue with Sinemet, trihexyphenidyl. #3 instability/frequent falls/physical debility: Multifactorial secondary to age , medical problems including Parkinson's disease. Patient lives at the assisted living. Patient will need placement to long-term facility. #4 other chronic medical problems: Stable, continue current medications as above. This note was generated with [employer] dictation software. It may contain incorrect words, spelling, and punctuation that were not noted in checking the note before signing. Code Visit Inpatient E&M: 45544 Subs Hosp L2
--- NOTE | 2018-05-28 13:25 | PCM.HP.ID ---
Problem List (1) UTI (urinary tract infection) Status: Acute Reason for Consult: uti Consulted by: Dr. Lemus History of Present Illness: The patient is a 77 year old F with dementia, presented to ED 05/26 with fall at home, found to have clavicular fracture. Reports several days of dysuria. No abd pain, no back pain, no fever. UA with no pyuria, but ucx with esbl ecoli. Has been on ceftriaxone. Reports dysuria improved this AM. Full ROS performed and neg except as noted above. - Medical History Past Medical History (Chronic Problems): Chronic Problems GERD (gastroesophageal reflux disease) (Chronic) Closed left hip fracture (Chronic) Anxiety (Chronic) Hypertension (Chronic) Parkinson disease (Chronic) end stage, pt has declined sinemet until recently, sinemet and sinemet CR are both fairly new for her, she is tolerating well Depression (Chronic) Osteoarthritis (Chronic) Flatulence (Chronic) Constipation (Chronic) Insomnia (Chronic) Muscle spasm (Chronic) Allergies/Adverse Reactions: Allergies ciprofloxacin [From Cipro] Allergy (Verified 05/20/18 18:42) Unknown not sure but thinks she is doxycycline Allergy (Verified 05/25/18 21:29) Unknown not sure but thinks she is erythromycin base Allergy (Verified 05/25/18 21:29) Unknown not sure but thinks she is fentanyl Allergy (Verified 05/25/18 21:29) Unknown not sure fosinopril [From Monopril] Allergy (Verified 05/25/18 21:29) Unknown not sure lorazepam Allergy (Verified 05/25/18 21:29) Unknown unsure midazolam [From Versed] Allergy (Verified 05/25/18 21:29) Unknown unsure moxifloxacin [From Avelox] Allergy (Verified 05/25/18 21:29) Unknown unsure naproxen [From Anaprox] Allergy (Verified 05/25/18 21:29) Unknown nitrofurantoin [From Macrobid] Allergy (Verified 05/25/18 21:29) Unknown she's not sure Penicillins Allergy (Verified 05/25/18 21:29) Rash sulfacetamide Allergy (Verified 05/20/18 18:42) Unknown unaware of the reaction telithromycin [From Ketek] Allergy (Verified 05/20/18 18:42) Unknown unaware of reaction hydrocodone [From Vicodin] Adverse Reaction (Verified 05/20/18 18:42) nausea/vomitting propoxyphene [From Darvocet-N] Adverse Reaction (Verified 05/20/18 18:42) n/v tramadol Adverse Reaction (Verified 05/20/18 18:42) n/v Home Medications: Ambulatory Orders Medication Instructions Recorded Melatonin/Pyridoxine [Melatonin 5 10 mg PO QHS PRN 06/12/16 mg Tablet] Carvedilol [Coreg (Beta [place])] 6.25 mg PO BID 11/29/16 Trihexyphenidyl HCl 1 mg PO TID 11/29/16 Calcium Carbonate [Tums] 1,000 mg PO Q4H PRN PRN #0 tablet 12/13/16 Polyvinyl Alcohol [Artificial 1 drop EACH EYE DAILY PRN PRN 07/13/17 Tears] Ondansetron [Zofran Odt] 4 mg PO Q8H PRN PRN #30 08/12/17 levETIRAcetam tablet [Keppra 500 mg PO QHS tablet 08/30/17 tablet] Carbidopa/Levodopa 25/100 [Sinemet 2 tablet PO TIDAC #30 09/09/17 25/100] Carbidopa/Levodopa 50/200 [Sinemet 1 tablet PO QHS #30 09/09/17 CR 50/200] Pantoprazole Sodium [Protonix] 40 mg PO DAILY #30 tablet 09/09/17 Aspirin [Aspirin EC] 81 mg PO DAILY 10/26/17 Citalopram [Celexa] 40 mg PO DAILY 10/26/17 Cholecalciferol (Vitamin D3) 5,000 unit PO DAILY 05/20/18 [Vitamin D3] Gabapentin [Neurontin] 200 mg PO TIDCM 05/20/18 Oxybutynin [Ditropan] 10 mg PO DAILY 05/20/18 Polyethylene Glycol 3350 [Miralax] 17 gm PO DAILY 05/20/18 hydrOXYzine pamoate capsule 25 - 50 mg PO QHS PRN 05/20/18 [Vistaril pamoate capsule] Acetaminophen 500 mg PO Q4H PRN 05/25/18 Ibuprofen 200 mg PO Q4H PRN PRN 05/25/18 Oxycodone [Oxyir] 5 mg PO Q6H PRN PRN 05/25/18 Vital Signs Temp Pulse Resp BP Pulse Ox 98.7 F 66 16 123/73 H 95 05/28/18 10:00 05/28/18 10:00 05/28/18 10:00 05/28/18 10:00 05/28/18 10:00 Oxygen Delivery Method Room Air Weight: 56.8 kg Body Mass Index (BMI) 22.8 Microbiology Past 72 Hours 05/26/18 20:10 Urine Culture - Preliminary Urine, Catheterized Escherichia coli - Other Studies Radiology: [] reviewed Other Studies: [] Route of nutrition/ use of supplements: [] Nutritional Intake: [] IV Site: [] Mckeon Catheter: [] - Physical Exam General: Alert, Cooperative, No apparent distress, - - oriented x2 HEENT: Atraumatic, PERRLA, EOMI, Normocephalic Neck: Supple, No Nodes Lungs: Clear to auscultation, Normal air movement Cardiovascular: Regular rate, Regular Rhythm Abdomen: Soft, Non Tender, Non-Distended Extremities: No edema Skin: No rashes IV Site: Peripheral, without redness Musculoskeletal: No Tenderness to Palpation of Joints or Extremities - Assessment/Plan Antibiotics: [] Assessment/Plan: [] Active and Suspected Problems Clavicular fracture (Acute) Multiple falls (Acute) Dehydration (Acute) complicated esbl ecoli uti - multiple drug allergies and she is not clear on what reactions were. Will stop ceftriaxone and treat with single dose of fosfomycin 3gm. Thank you, will follow, d/w primary team.
[2018-05-28 15:35] VITALS: O2SAT 94
[2018-05-28 15:37] VITALS: BP 147/90; PULSE 69; RESP 18; TEMP 36.9; O2SAT 96
[2018-05-28] MEDS: FOSFOMYCIN TROMETHAMINE 3 GM PACKET PO (17:30)
[2018-05-28 21:00] VITALS: BP 159/93; PULSE 68; RESP 16; TEMP 37.7; O2SAT 97
[2018-05-28] MEDS: CARBIDOPA/LEVODOPA CR 50/200 Tablet PO (22:03)
[2018-05-28] MEDS: levETIRAcetam 500 MG Tablet PO (22:03)
[2018-05-28] MEDS: MELATONIN 10 MG TABLET PO (22:03)
[2018-05-29 04:00] VITALS: BP 152/83; PULSE 62; RESP 16; TEMP 36.6; O2SAT 98
[2018-05-29] MEDS: Ibuprofen 200 MG Tablet PO (04:08)
[2018-05-29] MEDS: Carbidopa/Levodopa 25/100 Tablet PO ×2 (06:39→11:38)
[2018-05-29] MEDS: TRIHEXYPHENIDYL HCL 2 MG TABLET 1 MG PO (06:39)
[2018-05-29] MEDS: Gabapentin 100 MG Capsule 200 MG PO ×2 (09:10→11:38)
[2018-05-29] MEDS: Polyethylene Glycol 3350 17 GM PACKET PO (09:12)
[2018-05-29] MEDS: Aspirin E.C. 81 MG Tablet PO (09:14)
[2018-05-29] MEDS: Pantoprazole Sodium 40 MG Tablet PO (09:14)
[2018-05-29] MEDS: Tolterodine Tartrate 2 MG CAP.SA PO (09:14)
[2018-05-29] MEDS: Senna/Docusate Sodium 1 Tablet 2 TABLET PO (09:14)
[2018-05-29] MEDS: Citalopram 40 MG TABLET PO (09:14)
[2018-05-29] MEDS: Carvedilol 6.25 MG Tablet PO (09:14)
[2018-05-29] MEDS: Enoxaparin 40 MG/0.4 ML Syringe SC (09:15)
[2018-05-29] MEDS: Calcium Carbonate 500 MG Tablet 1000 MG PO (09:15)
[2018-05-29 09:18] VITALS: BP 156/94; PULSE 66; RESP 18; TEMP 36.7; O2SAT 96
--- NOTE | 2018-05-29 09:35 | TREXTCAR_ITS ---
- Diet 05/26/18 01:00 Diet: Regular Diet Food consistency:: Regular Liquid Consistency:: Regular/Thin - Routine Orders/Code Status [facility] The[facility]ies Occupational Therapy: Eval and Treat - Allergies/Procedures Done in Hospital Allergies/Adverse Reactions: Allergies ciprofloxacin [From Cipro] Allergy (Verified 05/20/18 18:42) Unknown not sure but thinks she is doxycycline Allergy (Verified 05/25/18 21:29) Unknown not sure but thinks she is erythromycin base Allergy (Verified 05/25/18 21:29) Unknown not sure but thinks she is fentanyl Allergy (Verified 05/25/18 21:29) Unknown not sure fosinopril [From Monopril] Allergy (Verified 05/25/18 21:29) Unknown not sure lorazepam Allergy (Verified 05/25/18 21:29) Unknown unsure midazolam [From Versed] Allergy (Verified 05/25/18 21:29) Unknown unsure moxifloxacin [From Avelox] Allergy (Verified 05/25/18 21:29) Unknown unsure naproxen [From Anaprox] Allergy (Verified 05/25/18 21:29) Unknown nitrofurantoin [From Macrobid] Allergy (Verified 05/25/18 21:29) Unknown she's not sure Penicillins Allergy (Verified 05/25/18 21:29) Rash sulfacetamide Allergy (Verified 05/20/18 18:42) Unknown unaware of the reaction telithromycin [From Ketek] Allergy (Verified 05/20/18 18:42) Unknown unaware of reaction hydrocodone [From Vicodin] Adverse Reaction (Verified 05/20/18 18:42) nausea/vomitting propoxyphene [From Darvocet-N] Adverse Reaction (Verified 05/20/18 18:42) n/v tramadol Adverse Reaction (Verified 05/20/18 18:42) n/v - Type of Care/Length of Stay Estimated LOS: Convalescent Care Less Than 30 days Type of Care Needed: Skilled Rehab Potential: Good Prognosis: Good - Additional Orders/Day of Discharge Day of Discharge: 05/29/18 - Dietary and Speech Recommendations Dietitian Recommendations/Changes: Continue on regular diet. Continue with ensure enlive on medpass. - Follow Up Care Primary Care Physician: Ruthie Castro MD [Primary Care Provider] -
--- NOTE | 2018-05-29 09:36 | PCM.DC.SUM ---
Discharge Date and Diagnosis - Problem List Patient Problems: Active and Suspected Problems Clavicular fracture (Acute) Multiple falls (Acute) Dehydration (Acute) UTI (urinary tract infection) (Acute) Date of Admission: 05/26/18 Date of Discharge: 05/29/18 - Primary Discharge Diagnosis Active and Suspected Problems Clavicular fracture (Acute) Multiple falls (Acute) Dehydration (Acute) UTI (urinary tract infection) (Acute) - Secondary Discharge Diagnosis Chronic Problems GERD (gastroesophageal reflux disease) (Chronic) Closed left hip fracture (Chronic) Anxiety (Chronic) Hypertension (Chronic) Parkinson disease (Chronic) end stage, pt has declined sinemet until recently, sinemet and sinemet CR are both fairly new for her, she is tolerating well Depression (Chronic) Osteoarthritis (Chronic) Flatulence (Chronic) Constipation (Chronic) Insomnia (Chronic) Muscle spasm (Chronic) Hospital Course and Treatment Imaging Results: Clinical Impression(s) from Imaging Studies Brain CT 05/25/18 21:34 IMPRESSION: Normal unenhanced CT scan of the brain. Electronically Signed: Pedro Pablo Chery MD at 22:41 EDT , Service support , Chest X-Ray 05/25/18 21:[address] 05/25/18 21:36 IMPRESSION: No fracture Electronically Signed: Pedro Pablo Chery MD at 22:45 EDT , Service support , Chest CT 05/25/18 23:08 IMPRESSION: Mildly displaced fracture distal left clavicle. No acute findings in the lungs. No focal infiltrates or effusions. No pneumothorax. Old severe compression fractures T11 and T12. Additional compression fractures in the thoracic spine which are probably old. Old left fourth anterior rib fracture. Electronically Signed: Tino Butler MD at 0:31 EDT , Service support , Clavicle X-Ray 05/28/18 07:10 IMPRESSION: Nondisplaced oblique fracture of the mid lateral aspect of the left clavicle. Electronically Signed: Martinez Garcia MD at 11:27 EDT Tel [phone], Service support , Operations: None Summary of Care Provided: Patient is a 77-year-old lady admitted following a fall 1. Fall with Mildly displaced fracture distal left clavicle. She was admitted to regular nursing floor managed with physician with consultation placed to orthopedic surgery as well as PT OT as tolerated. Did consult his management [facility] 2. Urinary tract infection with multi resistant E. coli ID was consulted patient was seen by Dr. 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 Seizure disorder controlled with Keppra 5. Depression with anxiety 6. Hypertension-blood pressure controlled, home medications continued with dose adjustment as needed 7. DVT prophylaxis Lovenox Home Medications: Medications to take at Discharge Melatonin/Pyridoxine [Melatonin 5 mg Tablet] 10 mg PO QHS PRN 06/12/16 Carvedilol [Coreg (Beta [place])] 6.25 mg PO BID 11/29/16 Trihexyphenidyl HCl 1 mg PO TID 11/29/16 Calcium Carbonate [Tums] 1,000 mg PO Q4H PRN PRN #0 tablet 12/13/16 Polyvinyl Alcohol [Artificial Tears] 1 drop EACH EYE DAILY PRN PRN 07/13/17 Ondansetron [Zofran Odt] 4 mg PO Q8H PRN PRN #30 08/12/17 levETIRAcetam tablet [Keppra tablet] 500 mg PO QHS tablet 08/30/17 Carbidopa/Levodopa 25/100 [Sinemet 25/100] 2 tablet PO TIDAC #30 09/09/17 Carbidopa/Levodopa 50/200 [Sinemet CR 50/200] 1 tablet PO QHS #30 09/09/17 Pantoprazole Sodium [Protonix] 40 mg PO DAILY #30 tablet 09/09/17 Aspirin [Aspirin EC] 81 mg PO DAILY 10/26/17 Citalopram [Celexa] 40 mg PO DAILY 10/26/17 Cholecalciferol (Vitamin D3) [Vitamin D3] 5,000 unit PO DAILY 05/20/18 Gabapentin [Neurontin] 200 mg PO TIDCM 05/20/18 Oxybutynin [Ditropan] 10 mg PO DAILY 05/20/18 Polyethylene Glycol 3350 [Miralax] 17 gm PO DAILY 05/20/18 hydrOXYzine pamoate capsule [Vistaril pamoate capsule] 25 - 50 mg PO QHS PRN 05/20/18 Ibuprofen 200 mg PO Q4H PRN PRN 05/25/18 Acetaminophen Liquid [Tylenol Liquid] 650 mg PO Q6H PRN udc 05/29/18 Oxycodone [Oxyir] 5 mg PO Q6H PRN PRN 5 Days #15 tab 05/29/18 Following Prescrptions Were Given to Patient: Oxycodone [Oxyir] 5 mg PO Q6H PRN PRN 5 Days #15 tab PRN Reason: Pain Primary Care Physician: Ruthie Castro MD [Primary Care Provider] - Disposition: [facility] facility Minutes spent on discharge:: 35 Patient Condition:: Stable Medical Necessity - Tobacco Use Smoking Status: Never smoker Meaningful Use Info Meaningful Use Diagnoses (Choose all that apply): None applicable Code Visit Inpatient E&M: 06691 Disch Hosp
--- NOTE | 2018-05-29 10:05 | CASEMGMT ---
Social Work Note Pt is being discharged to [facility] today. JOANIE faxed completed discharge paperwork including transfer to extended care facility, signed medication list and any scripts. Originals in SNF folder and copy on pt's chart. JOANIE completed [facility]escent [facility] in [facility]. Original in SNF folder and copy on pt's chart. JOANIE set up transportation through [facility] via cot for 12:30pm. Transportation form on SNF folder and copy on pt's chart. JOANIE placed a call to Chrissy at [facility] and updated her of transportation time. JOANIE placed a call to pt's daughter Alecia and informed her of transportation time. JOANIE also updated JENNY Sanford, Charge Nurse Skye and pt of transportation time. JOANIE placed a call to [facility] and spoke with JENNY Montelongo and updated her that pt went to SNF today. Jayda states understanding. Plan: Pt to discharge to [facility] via cot through [facility] at 12:30pm. Gila Workman CLERICAL CAR CHECKER, TOUCH UP PAINTER
--- NOTE | 2018-05-29 10:29 | NURSING ---
call placed to the [facility], report given to nurse who will be receiving this pt
[2018-05-29 17:03] LABS: Vitamin D 1,25-Dihydroxy 61.9 pg/mL (19.9-79.3)
== END 2018-05-29 12:15 | disposition skilled nursing facility (03) | DRG 563 ==
LOC: ED 21:49 → MS3 05-26 01:18
PROVIDERS: Admitting Provider Hospitalist; Emergency Provider Emergency Medicine; Family Provider Family Medicine; PCP Family Medicine; Visit Provider Internal Medicine
DX: S42.032A Displaced fracture of lateral end of left clavicle, initial encounter for closed fracture (principal); N30.00 Acute cystitis without hematuria; F02.81 Dementia in other diseases classified elsewhere, unspecified severity, with behavioral disturbance; W01.0XXA Fall on same level from slipping, tripping and stumbling without subsequent striking against object, initial encounter; Z91.81 History of falling; Y93.9 Activity, unspecified; Y92.099 Unspecified place in other non-institutional residence as the place of occurrence of the external cause; I10 Essential (primary) hypertension; E86.0 Dehydration; G20 Parkinson's disease; G47.00 Insomnia, unspecified; G40.909 Epilepsy, unspecified, not intractable, without status epilepticus; B96.20 Unspecified Escherichia coli [E. coli] as the cause of diseases classified elsewhere; Z16.12 Extended spectrum beta lactamase (ESBL) resistance; K21.9 Gastro-esophageal reflux disease without esophagitis; M19.90 Unspecified osteoarthritis, unspecified site; R29.6 Repeated falls; F41.8 Other specified anxiety disorders
CPT/HCPCS: 36415; 70450; 71045; 71250; 72125; 73000; 80048; 80053; 81001; 82306; 82607; 82652; 85025; 85027; 87077; 87086; 87088; 87186; 97110; 97162; 97166; 97530; 97535; 97802; 99285; J7030; A4216; J2405

== ENCOUNTER → 2018-06-20 15:17 | Outpatient (CLI) | payer MEDICARE, OTHER, SELFPAY ==
[2018-06-20 16:32] LABS: Vitamin B12 277 pg/mL (211-911); Vitamin D,25 Hydroxy 68.2 ng/mL (29.95-100.01)
[2018-06-20 16:34] LABS: ALB/GLOB Ratio 1.1 RATIO (0.9-2.4); AST(SGOT) 12 U/L (15-37); Alanine Aminotransfer ALT/SGPT 8 U/L (13-56); Albumin, Serum 3.7 g/dL (3.2-5.0); Alkaline Phosphatase 143 U/L (45-117); Anion Gap 10 (5-15); BUN 14 mg/dL (7-18); BUN/Creat Ratio 23.1 RATIO (10-20); Chloride 105 mmol/L (98-107); Creatinine, Serum 0.61 mg/dL (0.55-1.02); EST Glomerular Filtration Rate 102 mL/min (>60); Est Glom Filt Rate - Afr Amer 123 mL/min (>60); Globulin 3.4 g/dL (2.2-4.2); Glucose 95 mg/dL (74-106); Potassium 4.1 mmol/L (3.5-5.1); Protein, Total 7.1 g/dL (6.4-8.2); Sodium Level 143 mmol/L (136-145); Thyroid Stim Hormone (TSH) 1.16 uIU/mL (0.358-3.74)
[2018-06-25 08:11] LABS: KEPPRA (LEVETIRACETAM) 7.3 ug/mL (10.0-40.0)
== END ==
PROVIDERS: Family Provider Family Medicine; PCP Family Medicine; Visit Provider Clinical Nurse Specialist Acute Care
DX: R56.9 Unspecified convulsions (principal); F03.90 Unspecified dementia, unspecified severity, without behavioral disturbance, psychotic disturbance, mood disturbance, and anxiety; G20 Parkinson's disease
CPT/HCPCS: 36415; 80053; 80177; 82306; 82607; 84443

== ENCOUNTER 2018-06-22 12:34 | Emergency (ER) | payer MEDICARE, OTHER, SELFPAY ==
[2018-06-22 12:39] VITALS: BP 93/72; PULSE 70; RESP 13; TEMP 36.9; O2SAT 95; BMI 19.8
--- NOTE | 2018-06-22 12:59 | ED.RN ---
PT FOLLOWS COMMANDS, BUT DOES NOT SPEAK.
[2018-06-22 14:10] LABS: Absolute Lymphocyte Count 1.02 X10^3/ul (0.83-4.51); Absolute Neutrophil Count 6.6 X10^3/uL (2.0-7.7); Basophil# 0.01 X10^3/uL; Basophil% 0.1 % (0-1); Eosinophil# 0.01 X10^3/uL; Eosinophils% 0.1 % (0-5); Hematocrit 39.6 % (37-47); Hemoglobin 12.9 g/dl (12.0-15.0); Lymphocyte # 1.02 X10^3/ul (4.0); Lymphocyte % 12.1 % (19-41); Mean Corp Hgb Conc 32.6 g/gl (32-36); Mean Corpuscular Hgb 27.6 pg (27.0-32.0); Mean Corpuscular Volume 84.6 fL (81-99); Mean Platelet Vol. 10.7 fl (6.2-12.0); Monocyte# 0.78 X10^3/uL; Monocyte% 9.2 % (0-10); Neutrophil # 6.62 X10^3/uL (2.7-7.7); Neutrophil % 78.4 % (47-70); Platelet Count 151 K/mm3 (150-450); RBC Distribution Width CV 14.6 % (11.6-14.6); RBC Distribution Width SD 45.2 fl (35.1-43.9); Red Blood Count 4.68 M/mm3 (4.2-5.4); White Blood Count 8.5 K/mm3 (4.4-11.0)
[2018-06-22 14:11] LABS: POSITIVE COUNT NO; POSITIVE DIFFERENTIAL NO; POSITIVE MORPHOLOGY NO
[2018-06-22] MEDS: 0.9% Normal Saline 1,000 ML 150 ML IV (14:12)
[2018-06-22 14:38] VITALS: BP 133/68; PULSE 67; RESP 13; O2SAT 100
[2018-06-22 14:39] LABS: Anion Gap 12 (5-15); BUN 16 mg/dL (7-18); Calcium,Total 9.1 mg/dL (8.5-10.1); Chloride 104 mmol/L (98-107); Creatinine, Serum 0.62 mg/dL (0.55-1.02); EST Glomerular Filtration Rate 100 mL/min (>60); Est Glom Filt Rate - Afr Amer 121 mL/min (>60); Estimated Creatinine Clearance 41.58 ml/min; Glucose 74 mg/dL (74-106); Potassium 3.4 mmol/L (3.5-5.1); Sodium Level 139 mmol/L (136-145)
[2018-06-22 14:54] LABS: Bacteria 0 SEEN /hpf (None Seen); Red Blood Cells-Urine 0 SEEN /hpf (0-5); Squamous Epithelial Cells - UA 0 SEEN /hpf (5-10)
[2018-06-22 15:01] LABS: Color, Urine Yellow (Yellow); Glucose, Dipstick Normal (Normal); Ketone-Dipstick 50 mg/dl (Negative); Leukocyte Esterase-Dipstick 25 /ul (Negative); Nitrite-Dipstick Negative (Negative); Occult Blood-Urine 10 /ul (Negative); Protein-Dipstick 15 mg/dl (Negative); Urine Clarity Clear (Clear); Urine Urobilinogen 1 mg/dl (Normal)
[2018-06-22 15:03] LABS: Urine Bilirubin Dipstick 1 mg/dL (Negative)
[2018-06-22 15:08] LABS: Mucous, Urine 1+ /hpf (<or=2+); White Blood Cells 0-5 SEEN /hpf (0-5)
[2018-06-22 16:03] VITALS: BP 127/73; PULSE 72; RESP 19
[2018-06-22] MEDS: Acetaminophen 325 MG Tablet 650 MG PO (16:08)
--- NOTE | 2018-06-22 17:05 | ED.VISSUMM ---
- ER Visit Summary Date of Service: 06/22/18 Chief Complaint: Confusion History of Present Illness: The patient is a 77 F with history of reflux disease, hypertension, Parkinson's, anxiety, depression. Patient was sent in by local ECF after reported change in mental status today. She did fall twice yesterday. She is a history of confusion but it seemed to be worse today. Daughter states the patient has been more confused in the last several days to maybe even a week. Patient's daughter thinks that her mother was started on antibiotic for UTI on the . Patient was also started on Ativan earlier this month but it is as needed and is unsure how often it is being given. Physical Examination: Blood pressure is 93/72, temperature 98.4, heart rate 70, respiratory rate 13, pulse ox 95% on room air. Head and neck examination reveals no external sign of trauma. Heart is regular rate and rhythm. Lung sounds are clear. Abdomen is soft nontender. Neuro exam reveals her to be alert. She does follow commands. She answers some questions. Test Results: EKG is sinus at 67 with a first-degree AV block. There is no sign of acute ischemia. This is unchanged compared to prior study of November 2017. Chest x-ray is unremarkable. CT head shows chronic involutional changes. CBC was normal overall white count with a slight left shift. Chemistry studies show potassium 3.4. Urinalysis shows 50 ketones but no bacteria. Troponin is less than 0.015. Blood and urine cultures were sent. Emergency Department Course and Treatment: Patient was given IV fluids along with Tylenol for mild headache. Test results are discussed with the patient and daughter at bedside. Nursing staff was able to confirm the patient was started on antibiotics for UTI recently. She may have some degree of closed head injury in addition to the current infection that she is fighting. It does appear that her urine is clearing appropriately. At this time [facility] her current [facility]. Treatment Plan: [] Disposition: Discharge Impression: Reported confusion Addendum: I did receive a call back from the nurse at the [facility]. We reviewed her lab work and CT. Patient did not in fact have a UTI. She was started on Keflex to treat left ear swelling. This area does not appear grossly abnormal at this time and is unremarkable on her CT scan. Nurse does state the patient did receive 0.5 mg of Ativan this afternoon because she was trying to get out of bed and required one-on-one supervision. She states the patient does get Ativan on a regular basis and they have not had issues with this although we have lorazepam listed as an allergy for her here. Patient will be discharged back to the [facility] at this time. This note was generated with [employer] dictation software. It may contain incorrect words, spelling, and punctuation that were not noted in review of the chart prior to signing ED Disposition - Plan for ED Patient: Disposition: Home or Assisted Living Chief Complaint: Confusion Instructions: ED Confusion Referrals: Ruthie Castro MD [Primary Care Provider] -
--- NOTE | 2018-06-22 17:11 | ED.DCSUM_ITS ---
- ER Visit Summary Date of Service: 06/22/18 Chief Complaint: Confusion History of Present Illness: The patient is a 77 F with history of reflux disease , hypertension, Parkinson's, anxiety, depression. Patient was sent in by local ECF after reported change in mental status today. She did fall twice yesterday. She is a history of confusion but it seemed to be worse today. Daughter states the patient has been more confused in the last several days to maybe even a week. Patient's daughter thinks that her mother was started on antibiotic for UTI on the . Patient was also started on Ativan earlier this month but it is as needed and is unsure how often it is being given. Physical Examination: Blood pressure is 93/72, temperature 98.4, heart rate 70, respiratory rate 13, pulse ox 95% on room air. Head and neck examination reveals no external sign of trauma. Heart is regular rate and rhythm. Lung sounds are clear. Abdomen is soft nontender. Neuro exam reveals her to be alert. She does follow commands. She answers some questions. Test Results: EKG is sinus at 67 with a first-degree AV block. There is no sign of acute ischemia. This is unchanged compared to prior study of November 2017. Chest x-ray is unremarkable. CT head shows chronic involutional changes. CBC was normal overall white count with a slight left shift. Chemistry studies show potassium 3.4. Urinalysis shows 50 ketones but no bacteria. Troponin is less than 0.015. Blood and urine cultures were sent. Emergency Department Course and Treatment: Patient was given IV fluids along with Tylenol for mild headache. Test results are discussed with the patient and daughter at bedside. Nursing staff was able to confirm the patient was started on antibiotics for UTI recently. She may have some degree of closed head injury in addition to the current infection that she is fighting. It does appear that her urine is clearing appropriately. At this time patient be sent back to [facility] to continue her current therapy. Treatment Plan: [] Disposition: Discharge Impression: Reported confusion Addendum: I did receive a call back from the nurse at the [facility]. We reviewed her lab work and CT. Patient did not in fact have a UTI. She was started on Keflex to treat left ear swelling. This area does not appear grossly abnormal at this time and is unremarkable on her CT scan. Nurse does state the patient did receive 0.5 mg of Ativan this afternoon because she was trying to get out of bed and required one-on-one supervision. She states the patient does get Ativan on a regular basis and they have not had issues with this although we have lorazepam listed as an allergy for her here. Patient will be discharged back to the [facility] at this time. This note was generated with [employer] dictation software. It may contain incorrect words, spelling, and punctuation that were not noted in review of the chart prior to signing ED Disposition - Plan for ED Patient: Disposition: Home or Assisted Living Chief Complaint: Confusion Instructions: ED Confusion Referrals: Ruthie Castro MD [Primary Care Provider] -
--- NOTE | 2018-06-22 17:15 | ED.RN ---
ATTEMPTED TO CALL REPORT TO THE AVENUE. WAS NOT ABLE TO REACH ANYONE.
[2018-06-22 17:25] VITALS: BP 118/88; PULSE 67; RESP 19; O2SAT 95
== END 2018-06-22 17:59 | disposition home or self-care (01) ==
PROVIDERS: Emergency Provider Emergency Medicine; Family Provider Family Medicine; PCP Family Medicine
DX: R41.0 Disorientation, unspecified (principal); I44.0 Atrioventricular block, first degree; K21.9 Gastro-esophageal reflux disease without esophagitis; I10 Essential (primary) hypertension; G20 Parkinson's disease; F41.9 Anxiety disorder, unspecified; F32.9 Major depressive disorder, single episode, unspecified; Z87.440 Personal history of urinary (tract) infections; W19.XXXA Unspecified fall, initial encounter; Y93.9 Activity, unspecified; Y92.9 Unspecified place or not applicable; Z79.82 Long term (current) use of aspirin; Z79.899 Other long term (current) drug therapy
CPT/HCPCS: 70450; 71045; 80048; 81001; 84484; 85025; 87040; 87077; 87086; 87088; 93005; 96360; 96361; 99285; J7030; P9612; A4216

== ENCOUNTER 2018-07-01 15:47 | Emergency (ER) | payer MEDICARE, OTHER, SELFPAY ==
[2018-07-01 15:48] VITALS: BP 124/94; PULSE 75; RESP 16; TEMP 36.6; O2SAT 94; BMI 21.6
--- NOTE | 2018-07-01 16:12 | ED.VISSUMM ---
- ER Visit Summary Date of Service: 07/01/18 Chief Complaint: Acting out and penitentiary History of Present Illness: The patient is a 77 F history of Parkinson's disease., Violent and aggressive behavior. They want her medically cleared for the accepted back. Patient's daughter is in the room and thinks this is a medication issue. States she has been sent to a psychiatric facility before and they did not think there is anything they can do for her. Physical Examination: Elderly female vital signs are stable afebrile. No acute distress. She is tearful. In asking for people that are not in the room. HEENT exam unremarkable atraumatic. Pupils round reactive light. Neck nontender. Lungs clear to auscultation bilaterally. Heart regular rhythm no murmur. Abdomen is soft and nontender. Moving all 4 extremities. No gross focal deficits. She is awake. She follows simple commands. She is a limited informant. Test Results: Patient has had a recent CAT scan of the brain that showed chronic changes no acute process I do not think that needs to be repeated. Chest x-ray no acute abnormality read both by myself and the radiologist. CBC normal. BMP unremarkable. UA normal. Tox screen negative. Alcohol normal. Emergency Department Course and Treatment: Status change tearful and aggressive at the [facility]. Treated with IM Geodon is rest comfortably. I had a long discussion with the family, the physician on-call for Dr. Percy Hughes and the penitentiary and the patient be transferred back to the extended care facility. Dr. Hughes or her primary care physician Dr. Ruthie Castro will need to do further evaluation the patient and possible medication adjustments. Treatment Plan: Discharged back to the extended care facility. Disposition: Discharge Impression: Acute depression Acting out History of Parkinson's disease This note was generated with [employer] dictation software. It may contain incorrect words, spelling, and punctuation that were not noted in review of the chart prior to signing ED Disposition - Plan for ED Patient: Chief Complaint: Mental Health Referrals: Ruthie Castro MD [Primary Care Provider] -
--- NOTE | 2018-07-01 16:17 | ED.DCSUM_ITS ---
- ER Visit Summary Date of Service: 07/01/18 Chief Complaint: Acting out and [facility] History of Present Illness: The patient is a 77 F history of Parkinson's disease., Violent and aggressive behavior. They want her medically cleared for the accepted back. Patient's daughter is in the room and thinks this is a medication issue. States she has been sent to a psychiatric facility before and they did not think there is anything they can do for her. Physical Examination: Elderly female vital signs are stable afebrile. No acute distress. She is tearful. In asking for people that are not in the room. HEENT exam unremarkable atraumatic. Pupils round reactive light. Neck nontender. Lungs clear to auscultation bilaterally. Heart regular rhythm no murmur. Abdomen is soft and nontender. Moving all 4 extremities. No gross focal deficits. She is awake. She follows simple commands. She is a limited informant. Test Results: Patient has had a recent CAT scan of the brain that showed chronic changes no acute process I do not think that needs to be repeated. Chest x-ray no acute abnormality read both by myself and the radiologist. CBC normal. BMP unremarkable. UA normal. Tox screen negative. Alcohol normal. Emergency Department Course and Treatment: Status change tearful and aggressive at the [facility]. Treated with IM Geodon is rest comfortably. I had a long discussion with the family, the physician on-call for Dr. Percy Hughes and the [facility] and the patient be transferred back to the extended care facility. Dr. Hughes or her primary care physician Dr. Ruthie Castro will need to do further evaluation the patient and possible medication adjustments. Treatment Plan: Discharged back to the extended care facility. Disposition: Discharge Impression: Acute depression Acting out History of Parkinson's disease This note was generated with [employer] dictation software. It may contain incorrect words, spelling, and punctuation that were not noted in review of the chart prior to signing ED Disposition - Plan for ED Patient: Chief Complaint: Mental Health Referrals: Ruthie Castro MD [Primary Care Provider] -
[2018-07-01] MEDS: Ziprasidone IM 20 MG/ML VIAL IM (16:33)
[2018-07-01 17:59] LABS: Bacteria 0 SEEN /hpf (None Seen); Mucous, Urine 0 SEEN /hpf (<or=2+); Squamous Epithelial Cells - UA 0 SEEN /hpf (5-10)
[2018-07-01 18:01] LABS: Color, Urine Yellow (Yellow); Glucose, Dipstick Normal (Normal); Ketone-Dipstick 50 mg/dl (Negative); Leukocyte Esterase-Dipstick 25 /ul (Negative); Nitrite-Dipstick Negative (Negative); Occult Blood-Urine 25 /ul (Negative); Protein-Dipstick 15 mg/dl (Negative); Specific Gravity, Urine 1.015 (1.002-1.030); Urine Bilirubin Dipstick Negative (Negative); Urine Clarity Clear (Clear); Urine Urobilinogen Normal (Normal)
[2018-07-01 18:02] LABS: Absolute Neutrophil Count 3.7 X10^3/uL (2.0-7.7); Basophil# 0.01 X10^3/uL; Basophil% 0.2 % (0-1); Eosinophil# 0.04 X10^3/uL; Eosinophils% 0.7 % (0-5); Hematocrit 40.9 % (37-47); Hemoglobin 13.2 g/dl (12.0-15.0); Lymphocyte % 20.3 % (19-41); Mean Corp Hgb Conc 32.3 g/gl (32-36); Mean Corpuscular Hgb 27.6 pg (27.0-32.0); Mean Corpuscular Volume 85.6 fL (81-99); Mean Platelet Vol. 10.1 fl (6.2-12.0); Monocyte# 0.51 X10^3/uL; Monocyte% 9.4 % (0-10); Neutrophil # 3.74 X10^3/uL (2.7-7.7); Neutrophil % 69.2 % (47-70); POSITIVE COUNT NO; POSITIVE DIFFERENTIAL NO; POSITIVE MORPHOLOGY NO; Platelet Count 176 K/mm3 (150-450); RBC Distribution Width CV 14.9 % (11.6-14.6); RBC Distribution Width SD 46.7 fl (35.1-43.9); Red Blood Count 4.78 M/mm3 (4.2-5.4); White Blood Count 5.4 K/mm3 (4.4-11.0)
[2018-07-01 18:11] LABS: Amphetamine Urine VISTA NEGATIVE (<1000 ng/mL); Barbiturate Urine VISTA NEGATIVE (< 200 ng/mL); Benzodiazepine Urine VISTA NEGATIVE (< 200 ng/mL); Cocaine Urine VISTA NEGATIVE (< 300 ng/mL); Ecstacy Urine VISTA NEGATIVE (< 500 ng/mL); Methadone Urine VISTA NEGATIVE (< 300 ng/mL); PCP Urine VISTA NEGATIVE (< 25 ng/mL); Red Blood Cells-Urine 0-5 SEEN /hpf (0-5); THC Urine VISTA NEGATIVE (< 50 ng/mL); Vista UDS pH Range 7; White Blood Cells 0-5 SEEN /hpf (0-5)
[2018-07-01 18:18] LABS: Anion Gap 10 (5-15); BUN 16 mg/dL (7-18); BUN/Creat Ratio 25.2 RATIO (10-20); Chloride 108 mmol/L (98-107); Creatinine, Serum 0.64 mg/dL (0.55-1.02); EST Glomerular Filtration Rate 96 mL/min (>60); Est Glom Filt Rate - Afr Amer 117 mL/min (>60); Estimated Creatinine Clearance 38.97 ml/min; Glucose 75 mg/dL (74-106); Potassium 3.5 mmol/L (3.5-5.1); Sodium Level 143 mmol/L (136-145)
[2018-07-01 19:29] VITALS: BP 121/58; PULSE 55; RESP 16; O2SAT 97
--- NOTE | 2018-07-01 19:35 | ED.DEP ---
ED Disposition - Plan for ED Patient: Disposition: Home or Assisted Living Chief Complaint: Mental Health Instructions: ED Depression Referrals: Ruthie Castro MD [Primary Care Provider] - As soon as possible Additional Instructions: Need to be seen and reevaluated by either her primary care physician Dr. Ruthie Castro or the medical biller/coder of the nursing facility Dr. Percy Hughes to evaluate and make med changes as needed.
[2018-07-01 19:54] VITALS: BP 121/58; PULSE 56; RESP 15; O2SAT 99
--- NOTE | 2018-07-01 20:02 | ED.RN ---
Called [facility]. RN there already was informed of care plan by Dr. Dodge. transport set up for transport back to the [place].
[2018-07-01 20:03] VITALS: BP 96/53; PULSE 53; RESP 16; O2SAT 97
== END 2018-07-01 20:20 | disposition home or self-care (01) ==
PROVIDERS: Emergency Provider Emergency Medicine; Family Provider Family Medicine; PCP Family Medicine
DX: F32.9 Major depressive disorder, single episode, unspecified (principal); R45.6 Violent behavior; G20 Parkinson's disease; Z79.82 Long term (current) use of aspirin; Z79.899 Other long term (current) drug therapy
CPT/HCPCS: 71045; 80048; 80307; 80320; 81001; 85025; 96372; 99285; P9612; G0480; J3486

== ENCOUNTER 2018-07-03 20:26 | Inpatient (IN) | payer MEDICARE, OTHER, SELFPAY ==
[2018-07-03 20:28] VITALS: BP 104/65; PULSE 56; RESP 18; TEMP 36.5; O2SAT 96; BMI 21.7
[2018-07-03 20:52] LABS: Absolute Lymphocyte Count 1.49 X10^3/ul (0.83-4.51); Absolute Neutrophil Count 2.9 X10^3/uL (2.0-7.7); Basophil# 0.01 X10^3/uL; Basophil% 0.2 % (0-1); Eosinophil# 0.08 X10^3/uL; Eosinophils% 1.6 % (0-5); Hematocrit 36.3 % (37-47); Hemoglobin 11.8 g/dl (12.0-15.0); Lymphocyte # 1.49 X10^3/ul (4.0); Lymphocyte % 30.2 % (19-41); Mean Corp Hgb Conc 32.5 g/gl (32-36); Mean Corpuscular Hgb 27.8 pg (27.0-32.0); Mean Corpuscular Volume 85.4 fL (81-99); Mean Platelet Vol. 9.8 fl (6.2-12.0); Monocyte# 0.41 X10^3/uL; Monocyte% 8.3 % (0-10); Neutrophil # 2.94 X10^3/uL (2.7-7.7); Neutrophil % 59.7 % (47-70); Platelet Count 176 K/mm3 (150-450); RBC Distribution Width CV 15.4 % (11.6-14.6); Red Blood Count 4.25 M/mm3 (4.2-5.4); White Blood Count 4.9 K/mm3 (4.4-11.0)
[2018-07-03 20:54] LABS: POSITIVE COUNT NO; POSITIVE DIFFERENTIAL NO; POSITIVE MORPHOLOGY NO
[2018-07-03 21:06] LABS: Anion Gap 10 (5-15); BUN 23 mg/dL (7-18); BUN/Creat Ratio 34.5 RATIO (10-20); Chloride 109 mmol/L (98-107); Creatinine, Serum 0.67 mg/dL (0.55-1.02); EST Glomerular Filtration Rate 91 mL/min (>60); Est Glom Filt Rate - Afr Amer 110 mL/min (>60); Estimated Creatinine Clearance 37.26 ml/min; Glucose 111 mg/dL (74-106); Potassium 3.3 mmol/L (3.5-5.1); Sodium Level 145 mmol/L (136-145)
[2018-07-03 21:41] LABS: Color, Urine Amber (Yellow); Glucose, Dipstick Normal (Normal); Ketone-Dipstick 15 mg/dl (Negative); Leukocyte Esterase-Dipstick 500 /ul (Negative); Nitrite-Dipstick Positive (Negative); Occult Blood-Urine 25 /ul (Negative); Protein-Dipstick 30 mg/dl (Negative); Specific Gravity, Urine 1.025 (1.002-1.030); Urine Clarity Sl. Cloudy (Clear); Urine Urobilinogen 1 mg/dl (Normal)
[2018-07-03 21:51] LABS: Urine Bilirubin Dipstick 3 mg/dL (Negative)
[2018-07-03 21:53] LABS: Red Blood Cells-Urine 0-5 SEEN /hpf (0-5); Squamous Epithelial Cells - UA 0-5 SEEN /hpf (5-10); White Blood Cells >100 SEEN /hpf (0-5)
[2018-07-03 21:55] LABS: Bacteria 4+ /hpf (None Seen); Calcium Oxalate Crystals Ur RARE /hpf (<or=2+); Mucous, Urine RARE /hpf (<or=2+)
--- NOTE | 2018-07-03 22:47 | ED.DCSUM_ITS ---
- ER Visit Summary Date of Service: 07/03/18 Chief Complaint: Unresponsive History of Present Illness: The patient is a [address] Cornejo. Patient arrives to the emergency department unresponsive. Per retirement the patient had been more combative the past couple of days. They increase the dose of Seroquel and trazodone. She was combative at dinner so she received these medications at 7 PM. I am unable to obtain any history from her. Physical Examination: Vitals: 97.3, 104/65, 56, 18, 96% on room air which is not hypoxic. General: Well-nourished and well-developed. Head: Normocephalic atraumatic. Neck: Supple, no lymphadenopathy. No JVD. Nontender. Cardiovascular: Regular rate and rhythm. 2 out of 6 systolic murmur. Respiratory: No respiratory distress. Clear to auscultation bilaterally. Abdominal: Soft, nontender, nondistended, normal bowel sounds. No guarding, rebound, or peritoneal signs. Back: Nontender. Extremities: Nontender, no edema. Skin: Normal color, no rash. Neurologic: Unresponsive. She does withdraw to painful stimuli ?4. Psych: Normal affect. Test Results: CBC is marked for an H&H 11.8 and 36.3. Chem-7 marked potassium 3.3, chloride 109, glucose 111, BUN 23. UA shows an obvious infection. CT brain shows chronic changes. CT C-spine shows degenerative changes and no acute disease. Emergency Department Course and Treatment: Patient is DNR Comfort Care arrest. I reviewed her recent urine cultures. Because of this she was given meropenem IV. Treatment Plan: Patient will be discussed with the hospitalist and admitted for further evaluation and treatment. Disposition: Admitted in serious condition. Impression: 1. Decreased level of consciousness after Seroquel/trazodone. 2. UTI. 3. DNR Comfort Care arrest. This note was generated with [employer] dictation software. It may contain incorrect words, spelling, and punctuation that were not noted in review of the chart prior to signing ED Disposition - Plan for ED Patient: Chief Complaint: Unresponsive Referrals: Percy Hughes MD [Primary Care Provider] -
[2018-07-03 23:12] VITALS: BP 100/53; PULSE 49; RESP 18; O2SAT 95
[2018-07-04] VITALS (9 sets, daily range): BP systolic 98–166; BP diastolic 60–90; PULSE 50–60; RESP 10–20; TEMP 36.6–37.1; O2SAT 94–97; BMI 21.0; BMI 21.7
[2018-07-04] MEDS: 0.9% Normal Saline 1,000 ML 75 ML IV (04:21)
--- NOTE | 2018-07-04 04:30 | NURSING ---
pts left hand ring finger bruised and swollen from her fall at the senior care, called and notified the hospitalist to get a hand xray. pts gold tone wedding ring to be cut off since the swelling in the finger is so bad.
--- NOTE | 2018-07-04 05:19 | PCM.HP.STD ---
Problem List (1) Acute encephalopathy Status: Acute (2) Cystitis Status: Acute (3) Multiple falls Status: Chronic (4) UTI (urinary tract infection) Status: Acute (5) Weakness generalized Status: Chronic History of Present Illness Date of Admission: 07/04/18 Chief Complaint: Unresponsiveness ?1 day The patient is a 77 year old F from the [place] [facility] with a significant history of frequent falls hypertension, anxiety, depression and Parkinson's disease who was brought [place] the [place] [facility] because of unresponsiveness. Patient became more combative the last couple of days her trazodone and Seroquel was increased. At dinner time on the day of admission, patient's received this new dose of trazodone and Seroquel. Later on she became unresponsive and was brought to the emergency department. History was totally obtained from the emergency department doctor because patient was noncommunicative. At emergency department patient was a straight cath and her urine was abnormal. While at the the emergency department the patient began to follow commands but still remained nonverbal. Past Medical History Past Medical History (Chronic Problems): Chronic Problems Multiple falls (Chronic) GERD (gastroesophageal reflux disease) (Chronic) Closed left hip fracture (Chronic) Weakness generalized (Chronic) Anxiety (Chronic) Hypertension (Chronic) Parkinson disease (Chronic) end stage, pt has declined sinemet until recently, sinemet and sinemet CR are both fairly new for her, she is tolerating well Depression (Chronic) Osteoarthritis (Chronic) Flatulence (Chronic) Constipation (Chronic) Insomnia (Chronic) Muscle spasm (Chronic) Allergies ciprofloxacin [From Cipro] Allergy (Verified 07/03/18 20:32) Unknown not sure but thinks she is doxycycline Allergy (Verified 07/03/18 20:32) Unknown not sure but thinks she is erythromycin base Allergy (Verified 07/03/18 20:32) Unknown not sure but thinks she is fentanyl Allergy (Verified 07/03/18 20:32) Unknown not sure fosinopril [From Monopril] Allergy (Verified 07/03/18 20:32) Unknown not sure lorazepam Allergy (Verified 07/03/18 20:32) Unknown unsure midazolam [From Versed] Allergy (Verified 07/03/18 20:32) Unknown unsure moxifloxacin [From Avelox] Allergy (Verified 07/03/18 20:32) Unknown unsure naproxen [From Anaprox] Allergy (Verified 07/03/18 20:32) Unknown nitrofurantoin [From Macrobid] Allergy (Verified 07/03/18 20:32) Unknown she's not sure Penicillins Allergy (Verified 07/03/18 20:32) Rash sulfacetamide Allergy (Verified 07/03/18 20:32) Unknown unaware of the reaction telithromycin [From Ketek] Allergy (Verified 07/03/18 20:32) Unknown unaware of reaction hydrocodone [From Vicodin] Adverse Reaction (Verified 07/03/18 20:32) nausea/vomitting propoxyphene [From Darvocet-N] Adverse Reaction (Verified 07/03/18 20:32) n/v tramadol Adverse Reaction (Verified 07/03/18 20:32) n/v sulfonamides Allergy (Uncoded 07/04/18 01:49) Unknown Home Medications: Ambulatory Orders Medication Instructions Recorded Carvedilol [Coreg (Beta [place])] 6.25 mg PO BID 11/29/16 Calcium Carbonate [Tums] 1,000 mg PO Q4H PRN PRN #0 tablet 12/13/16 Polyvinyl Alcohol [Artificial 1 drop EACH EYE DAILY PRN PRN 07/13/17 Tears] Ondansetron [Zofran Odt] 4 mg PO Q8H PRN PRN #30 08/12/17 Aspirin [Aspirin EC] 81 mg PO DAILY 10/26/17 Citalopram [Celexa] 40 mg PO DAILY 10/26/17 Cholecalciferol (Vitamin D3) 5,000 unit PO DAILY 05/20/18 [Vitamin D3] Gabapentin [Neurontin] 200 mg PO TIDCM 05/20/18 Polyethylene Glycol 3350 [Miralax] 17 gm PO DAILY 05/20/18 hydrOXYzine pamoate capsule 50 mg PO Q6H PRN PRN 05/20/18 [Vistaril pamoate capsule] Carbidopa/Levodopa [Sinemet Cr 1 each PO QHS 06/22/18 50-200 Tablet] Lorazepam [Ativan] 0.5 mg PO Q6H PRN PRN 06/22/18 Acetaminophen Liquid [Tylenol 650 mg PO TID PRN PRN 07/01/18 Liquid] Bisacodyl [Laxative Suppository] 10 mg RECTAL QHS 07/01/18 Melatonin/Pyridoxine [Melatonin 5 10 mg PO QHS PRN PRN 07/01/18 mg Tablet] Oxybutynin Chloride [Ditropan Xl] 10 mg PO QHS 07/01/18 Pantoprazole Sodium [Protonix] 40 mg PO DAILY 07/01/18 Quetiapine Fumarate [Seroquel] 50 mg PO QHS 07/01/18 Trihexyphenidyl HCl 1 mg PO TID 07/01/18 levETIRAcetam tablet [Keppra 500 mg PO QHS 07/01/18 tablet] Carbidopa/Levodopa 25/100 [Sinemet] 3 tablet PO TIDAC 07/04/18 Surgical History: hysterectomy, total knee arthroplasty - left 2004, - - Left hip ORIF 07/11/2017. 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 VTE Information - Inpt Only VTE Present on Admission: No VTE Mechan Device Prophylaxis: None VTE Pharm Prophylaxis ordered?: Yes Patient Problems: Active and Suspected Problems Acute encephalopathy (Acute) Cystitis (Acute) - Physical Exam General: Alert, - - Noncommunicative; follow commands. HEENT: Atraumatic, PERRLA, EOMI, Normocephalic Neck: Supple, No JVD, Negative Carotid Bruits Lungs: Clear to auscultation, Normal air movement Cardiovascular: Regular rate, No murmurs Abdomen: Bowel Sounds Present, Soft, Non Tender Extremities: No edema, Capillary Refill Less than 3 Seconds Skin: - - Swelling of dorsal part of left Musculoskeletal: No Muscle Wasting, Tenderness - Last 3 three lateral left fingers. Lymphatic: No Cervical, Supraclavicular, or Inguinal Adenopathy Neurological: - - Patient was able to raise all extremities ; and could squeeze with her bilateral hands Psych/Mental Status: Normal Affect Vital Signs Temp Pulse Resp BP Pulse Ox 98.3 F 50 L 10 L 134/60 H 97 07/04/18 01:59 07/04/18 02:53 07/04/18 02:53 07/04/18 01:59 07/04/18 02:53 Oxygen Delivery Method Room Air Weight: 53.892 kg Body Mass Index (BMI) 21.7 Assessment/Plan All Active Problems UTI (urinary tract infection) (Acute) Acute encephalopathy (Acute) Cystitis (Acute) The patient is a 77 year old F from the [place] [facility] with a significant history of frequent falls hypertension, anxiety, depression and Parkinson's disease who was brought [place] the [place] [facility] [place] because of unresponsiveness Acute encephalopathy CT brain unremarkable CT C-spine showed degenerative disease. Likely secondary to overdose oversedation from the trazodone and Seroquel. Hold sedation medications. Cystitis Positive urinalysis Urine cultures are pending Likely patient was combative because of cystitis. Patient with history of Pseudomonas and ESBL E. coli in the urine Merrem was started at emergency departments Merrem continued. Hypokalemia Potassium ordered. Hand swelling X-ray of the hand ordered. Tylenol as needed History of seizures Keppra ordered Hypertension Blood pressure within goal admission Coreg continued Parkinson's disease Sinemet ordered Trihexyphenidyl continued Overactive bladder Detrol continue DVT prophylaxis Heparin ordered. Code Visit Inpatient E&M: 05719 Init Hosp L3
[2018-07-04] MEDS: Carbidopa/Levodopa 25/100 Tablet PO ×3 (05:41→16:37)
[2018-07-04] MEDS: TRIHEXYPHENIDYL HCL 2 MG TABLET 1 MG PO ×3 (05:41→22:26)
[2018-07-04 06:10] LABS: Absolute Lymphocyte Count 1.12 X10^3/ul (0.83-4.51); Basophil# 0.01 X10^3/uL; Basophil% 0.3 % (0-1); Eosinophil# 0.09 X10^3/uL; Eosinophils% 2.5 % (0-5); Hemoglobin 11.7 g/dl (12.0-15.0); Lymphocyte # 1.12 X10^3/ul (4.0); Lymphocyte % 31.5 % (19-41); Mean Corp Hgb Conc 32.5 g/gl (32-36); Mean Corpuscular Hgb 28.1 pg (27.0-32.0); Mean Corpuscular Volume 86.3 fL (81-99); Mean Platelet Vol. 10.5 fl (6.2-12.0); Monocyte# 0.32 X10^3/uL; Neutrophil # 2.01 X10^3/uL (2.7-7.7); Neutrophil % 56.4 % (47-70); Platelet Count 170 K/mm3 (150-450); RBC Distribution Width CV 15.3 % (11.6-14.6); RBC Distribution Width SD 47.3 fl (35.1-43.9); Red Blood Count 4.17 M/mm3 (4.2-5.4); White Blood Count 3.6 K/mm3 (4.4-11.0)
[2018-07-04 06:19] LABS: POSITIVE COUNT NO; POSITIVE DIFFERENTIAL NO; POSITIVE MORPHOLOGY NO
[2018-07-04 06:51] LABS: Anion Gap 10 (5-15); BUN 20 mg/dL (7-18); BUN/Creat Ratio 40.4 RATIO (10-20); Calcium,Total 8.6 mg/dL (8.5-10.1); Chloride 109 mmol/L (98-107); EST Glomerular Filtration Rate 128 mL/min (>60); Est Glom Filt Rate - Afr Amer 155 mL/min (>60); Estimated Creatinine Clearance 37.26 ml/min; Glucose 89 mg/dL (74-106); Potassium 3.4 mmol/L (3.5-5.1); Sodium Level 145 mmol/L (136-145)
--- NOTE | 2018-07-04 06:54 | PCM.CONS.GEN ---
Reason for Consult Date of Consultation: 07/04/18 Reason for Consultation: Left proximal phalanx fracture. requested by Dr Lagos History of Present Illness: The patient is a 77 year old F with history of Parkinson's and dementia presented to the emergency department last night with a UTI. Based on urosepsis she had significant combativeness at the nursing facility she resides at. She was given significant sedatives. She was later found down admitted to have significant swelling of her left ring finger. Ring finger was removed on the floor. X-rays were taken on the floor. Patient complains of pain and swelling in this area. She has associated bruising and ecchymosis. Based on her current mental status she is unable to get significantly more information. Most of the information is obtained from the emergency room department report in initial H&P. Past Medical History Past Medical History (Chronic Problems): Chronic Problems Multiple falls (Chronic) GERD (gastroesophageal reflux disease) (Chronic) Closed left hip fracture (Chronic) Weakness generalized (Chronic) Anxiety (Chronic) Hypertension (Chronic) Parkinson disease (Chronic) end stage, pt has declined sinemet until recently, sinemet and sinemet CR are both fairly new for her, she is tolerating well Depression (Chronic) Osteoarthritis (Chronic) Flatulence (Chronic) Constipation (Chronic) Insomnia (Chronic) Muscle spasm (Chronic) Allergies ciprofloxacin [From Cipro] Allergy (Verified 07/03/18 20:32) Unknown not sure but thinks she is doxycycline Allergy (Verified 07/03/18 20:32) Unknown not sure but thinks she is erythromycin base Allergy (Verified 07/03/18 20:32) Unknown not sure but thinks she is fentanyl Allergy (Verified 07/03/18 20:32) Unknown not sure fosinopril [From Monopril] Allergy (Verified 07/03/18 20:32) Unknown not sure lorazepam Allergy (Verified 07/03/18 20:32) Unknown unsure midazolam [From Versed] Allergy (Verified 07/03/18 20:32) Unknown unsure moxifloxacin [From Avelox] Allergy (Verified 07/03/18 20:32) Unknown unsure naproxen [From Anaprox] Allergy (Verified 07/03/18 20:32) Unknown nitrofurantoin [From Macrobid] Allergy (Verified 07/03/18 20:32) Unknown she's not sure Penicillins Allergy (Verified 07/03/18 20:32) Rash sulfacetamide Allergy (Verified 07/03/18 20:32) Unknown unaware of the reaction telithromycin [From Ketek] Allergy (Verified 07/03/18 20:32) Unknown unaware of reaction hydrocodone [From Vicodin] Adverse Reaction (Verified 07/03/18 20:32) nausea/vomitting propoxyphene [From Darvocet-N] Adverse Reaction (Verified 07/03/18 20:32) n/v tramadol Adverse Reaction (Verified 07/03/18 20:32) n/v sulfonamides Allergy (Uncoded 07/04/18 01:49) Unknown Home Medications: Ambulatory Orders Medication Instructions Recorded Carvedilol [Coreg (Beta [place])] 6.25 mg PO BID 11/29/16 Calcium Carbonate [Tums] 1,000 mg PO Q4H PRN PRN #0 tablet 12/13/16 Polyvinyl Alcohol [Artificial 1 drop EACH EYE DAILY PRN PRN 07/13/17 Tears] Ondansetron [Zofran Odt] 4 mg PO Q8H PRN PRN #30 08/12/17 Aspirin [Aspirin EC] 81 mg PO DAILY 10/26/17 Citalopram [Celexa] 40 mg PO DAILY 10/26/17 Cholecalciferol (Vitamin D3) 5,000 unit PO DAILY 05/20/18 [Vitamin D3] Gabapentin [Neurontin] 200 mg PO TIDCM 05/20/18 Polyethylene Glycol 3350 [Miralax] 17 gm PO DAILY 05/20/18 hydrOXYzine pamoate capsule 50 mg PO Q6H PRN PRN 05/20/18 [Vistaril pamoate capsule] Carbidopa/Levodopa [Sinemet Cr 1 each PO QHS 06/22/18 50-200 Tablet] Lorazepam [Ativan] 0.5 mg PO Q6H PRN PRN 06/22/18 Acetaminophen Liquid [Tylenol 650 mg PO TID PRN PRN 07/01/18 Liquid] Bisacodyl [Laxative Suppository] 10 mg RECTAL QHS 07/01/18 Melatonin/Pyridoxine [Melatonin 5 10 mg PO QHS PRN PRN 07/01/18 mg Tablet] Oxybutynin Chloride [Ditropan Xl] 10 mg PO QHS 07/01/18 Pantoprazole Sodium [Protonix] 40 mg PO DAILY 07/01/18 Quetiapine Fumarate [Seroquel] 50 mg PO QHS 07/01/18 Trihexyphenidyl HCl 1 mg PO TID 07/01/18 levETIRAcetam tablet [Keppra 500 mg PO QHS 07/01/18 tablet] Carbidopa/Levodopa 25/100 [Sinemet] 3 tablet PO TIDAC 07/04/18 Surgical History: hysterectomy, total knee arthroplasty - left 2004, - - Left hip ORIF 07/11/2017. 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 Denies: Night Sweats, Weight Change HEENT: Reports: - - Patient does have some facial contusions. Denies: Head Aches, Sinus Congestion, Sinus Drainage Cardiovascular: Denies: Chest Pain, Palpitations Respiratory: Denies: Cough, Shortness of breath at rest, Sputum production Gastrointestinal: Denies: Abdominal Pain, Nausea, Vomiting Genitourinary: Reports: Frequency, Urgency Musculoskeletal: Reports: - - See HPI Skin: Reports: - - Contusions and ecchymosis Neurological: Reports: Confusion, - Psychiatric: Reports: Depression Hematologic/ Lymphatic: Denies: Easy Bruising, Easy Bleeding Patient Problems: Active and Suspected Problems Acute encephalopathy (Acute) Cystitis (Acute) Objective: Left hand radiographs reveal a comminuted nondisplaced proximal phalanx fracture of the fourth digit - Physical Exam General: Alert, Cooperative, Confused Extremities: - - Left hand examination: Patient has bruising and ecchymosis at the base of the fourth digit and into the hand. Sensations intact light touch radial and ulnar distributions of the digit. Limited range of motion secondary to pain. Limited coach mechanic strength secondary to pain. Skin is intact. Indentation from previous ring. Stable to varus and valgus stress of joints. Vital Signs Temp Pulse Resp BP Pulse Ox 98.3 F 50 L 10 L 134/60 H 97 07/04/18 01:59 07/04/18 02:53 07/04/18 02:53 07/04/18 01:59 07/04/18 02:53 Oxygen Delivery Method Room Air Weight: 118 lb 13 oz Body Mass Index (BMI) 21.7 Intake and Output for Last 24 Hours 07/02/18 07/03/18 07/04/18 23:59 23:59 23:59 Intake Total 130 / 130 Output Total 75 / 75 Balance 55 / 55 Laboratory Tests Past 24 Hrs 07/04/18 07/04/18 05:25 05:25 WBC 3.6 L RBC 4.17 L Hgb 11.7 L Hct 36.0 L MCV 86.3 MCH 28.1 MCHC 32.5 RDW 15.3 H RDW Differential 47.3 H Plt Count 170 MPV 10.5 Immature Gran % (Auto) 0.300 Neut % (Auto) 56.4 Lymph % (Auto) 31.5 Sargent % (Auto) 9.0 Eos % (Auto) 2.5 Baso % (Auto) 0.3 Absolute Neuts (auto) 2.0 Absolute Lymphs (auto) 1.12 Total Counted Not Reportable Sodium 145 Potassium 3.4 L Chloride 109 H Carbon Dioxide 26.0 Anion Gap 10 BUN 20 H Creatinine 0.50 L Estim Creat Clear Calc 37.26 Est GFR (MDRD) Af Amer 155 Est GFR (MDRD) Non-Af 128 BUN/Creatinine Ratio 40.4 H Glucose 89 Calcium 8.6 Assessment/Plan All Active Problems UTI (urinary tract infection) (Acute) Acute encephalopathy (Acute) Cystitis (Acute) Left comminuted nondisplaced fourth proximal phalanx fracture. At this time I recommended nonoperative treatment. Natural history of disease process and treatment options were discussed the patient. You think at this time some of her understanding is limited. We have placed her in a splint this morning. There is no family at the bedside. Patient tolerated the placement of the splint very well. She is in [facility] ulnar-sided splint splinting the ulnar 2 digits. This does include her wrist. At this time I recommended the splint until her 2 week follow-up. She should be in the office in 2 weeks to see my physician delinquent tax collector assistant for follow-up radiograph. Overall the plan will be 4 weeks of immobilization with gentle range of motion beginning at 4 weeks provided appropriate healing has occurred. Based on her age and health she may require prolonged immobilization until adequate healing is obtained. Other modalities such as ice and elevation Tylenol and nonsteroidal anti-inflammatories can be used to help control pain. [facility] Office:
[2018-07-04] MEDS: Carvedilol 6.25 MG Tablet PO ×2 (09:12→22:27)
[2018-07-04] MEDS: Polyethylene Glycol 3350 17 GM PACKET PO (09:12)
[2018-07-04] MEDS: Aspirin E.C. 81 MG Tablet PO (09:12)
[2018-07-04] MEDS: Heparin Injection (Vial) 5,000 UNIT/ML VIAL 5000 UNIT SC ×2 (09:13→22:27)
[2018-07-04] MEDS: Pantoprazole Sodium 40 MG Tablet PO (09:13)
[2018-07-04] MEDS: Acetaminophen 325 MG Tablet 650 MG PO ×2 (10:20→16:26)
--- NOTE | 2018-07-04 10:51 | NURSING ---
daughter is taking wedding band that was cut off home
[2018-07-04] MEDS: Ibuprofen 400 MG Tablet PO (13:04)
--- NOTE | 2018-07-04 15:31 | PCM.HOSP.N ---
Hospitalist Note Seen and examined in the presence of patient's daughter near the bedside. The patient has history of working some disease, frequent fall, anxiety and depression and is on trazodone, Seroquel and was also on Ativan. 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 Patient was noncommunicative in ER Patient gets severe neck pain, back pain on ambulation and gets frustrated and is agitated and angry. Patient also has history of recurrent UTI with multiple organisms including ESBL E. coli, E. coli, Morganella morganii. Currently UA is positive of pyuria, WBC more than 100 cells with positive nitrite and LE. Urine bacteria 4+. Preliminary urine culture shows gram-negative gabino. Started empirically on IV meropenem with history of ESBL. Discontinue Ativan. Continue Keppra. Adjust psychotropic medications. Left comminuted nondisplaced fourth proximal phalanx fracture. Patient is on ulnar-sided splint off for the last 2 digits. Conservative management. Pain control. Microbiology Past 72 Hours 07/03/18 21:20 Urine, Clean Catch Urine Culture - Preliminary Gram negative gabino Laboratory Results 07/03/18 20:41: WBC 4.9, RBC 4.25, Hgb 11.8 L, Hct 36.3 L, MCV 85.4, MCH 27.8, MCHC 32.5, RDW 15.4 H, RDW Differential 48.0 H, Plt Count 176, MPV 9.8, Immature Gran % (Auto) 0.000, Neut % (Auto) 59.7, Lymph % (Auto) 30.2, Bond % (Auto) 8.3, Eos % (Auto) 1.6, Baso % (Auto) 0.2, Absolute Neuts (auto) 2.9, Absolute Lymphs (auto) 1.49, Total Counted Not Reportable 07/03/18 20:41: Sodium 145, Potassium 3.3 L, Chloride 109 H, Carbon Dioxide 26.0, Anion Gap 10, BUN 23 H, Creatinine 0.67, Estim Creat Clear Calc 37.26, Est GFR (MDRD) Af Amer 110, Est GFR (MDRD) Non-Af 91, BUN/Creatinine Ratio 34.5 H, Glucose 111 H, Calcium 9.0 07/03/18 21:20: Urine Color [place], Urine Clarity Sl. Cloudy, Urine pH 5.0, Ur Specific [place] 1.025, Urine Protein 30 H, Urine Glucose (UA) Normal, Urine Ketones 15 H, Urine Occult Blood 25 H, Urine Nitrite Positive H, Urine Bilirubin 3 H, Urine Urobilinogen 1 H, Ur Leukocyte Esterase 500 H, Urine RBC 0-5 SEEN, Urine WBC >100 SEEN, Ur Squamous Epith Cells 0-5 SEEN, Calcium Oxalate Crystal RARE, Urine Bacteria 4+, Urine Mucus RARE 07/04/18 05:25: WBC 3.6 L, RBC 4.17 L, Hgb 11.7 L, Hct 36.0 L, MCV 86.3, MCH 28.1, MCHC 32.5, RDW 15.3 H, RDW Differential 47.3 H, Plt Count 170, MPV 10.5, Immature Gran % (Auto) 0.300, Neut % (Auto) 56.4, Lymph % (Auto) 31.5, Bond % (Auto) 9.0, Eos % (Auto) 2.5, Baso % (Auto) 0.3, Absolute Neuts (auto) 2.0, Absolute Lymphs (auto) 1.12, Total Counted Not Reportable 07/04/18 05:25: Sodium 145, Potassium 3.4 L, Chloride 109 H, Carbon Dioxide 26.0, Anion Gap 10, BUN 20 H, Creatinine 0.50 L, Estim Creat Clear Calc 37.26, Est GFR (MDRD) Af Amer 155, Est GFR (MDRD) Non-Af 128, BUN/Creatinine Ratio 40.4 H, Glucose 89, Calcium 8.6
--- NOTE | 2018-07-04 15:40 | EKG12_ITS ---
Test Reason : Blood Pressure : / mmHG Vent. Rate : 061 BPM Atrial Rate : 061 BPM P-R Int : 214 ms QRS Dur : 090 ms QT Int : 460 ms P-R-T Axes : 006 -16 025 degrees QTc Int : 463 ms Sinus rhythm with 1st degree A-V block Otherwise normal ECG When compared with ECG of 22-JUN-2018 14:01, No significant change was found Confirmed by BRIGHT GRIDER, YARELIS ([id number]), supervising editor news reel SHAQ ROBERTO ([id number]) on 07/09/2018 2:05:56 PM Referred By: SANIYA Confirmed By:YARELIS NOVOA MD
--- NOTE | 2018-07-04 15:45 | CASEMGMT ---
Social Work Note JOANIE met with pt and pt's daughter Alecia. Alecia states that pt was going to be discharged from [facility] today to return to [facility]. Alecia states that she has been talking to Maranda over at [facility]. Alecia states that the plan is for pt to go to [facility] at discharge from [facility]. JOANIE placed a call to Maranda at [facility]. JOANIE faxed clinicals to Maranda at [phone]. JOANIE informed [facility] that projected discharge is tomorrow per Dr. García. JOANIE explained that once pt discharges the facility will receive discharge paperwork including medication list. Maranda states understanding and would like a PT order for pt. JOANIE put in PT order and placed on pt's chart. Green sheet on chart. Plan: Pt to discharge to [facility] when medically cleared Gila Workman RADIOLOGICAL HEALTH SPECIALIST, BACK HAND
[2018-07-04] MEDS: Gabapentin 100 MG Capsule PO (16:42)
[2018-07-04] MEDS: levETIRAcetam 500 MG Tablet PO (22:27)
[2018-07-04] MEDS: MELATONIN 10 MG TABLET PO (22:27)
[2018-07-04] MEDS: CARBIDOPA/LEVODOPA CR 50/200 Tablet PO (22:27)
[2018-07-04] MEDS: Tolterodine Tartrate 2 MG CAP.SA PO (22:27)
[2018-07-05 03:25] VITALS: BP 138/72; PULSE 60; RESP 18; TEMP 36.6; O2SAT 97
[2018-07-05] MEDS: Acetaminophen 325 MG Tablet 650 MG PO ×2 (04:21→12:36)
[2018-07-05 07:45] VITALS: O2SAT 96
[2018-07-05] MEDS: Citalopram 40 MG TABLET PO (08:51)
[2018-07-05] MEDS: Gabapentin 100 MG Capsule PO ×2 (08:51→12:23)
[2018-07-05] MEDS: Aspirin E.C. 81 MG Tablet PO (09:05)
[2018-07-05] MEDS: TRIHEXYPHENIDYL HCL 2 MG TABLET 1 MG PO (09:05)
[2018-07-05] MEDS: Pantoprazole Sodium 40 MG Tablet PO (09:05)
[2018-07-05] MEDS: Carvedilol 6.25 MG Tablet PO (09:06)
[2018-07-05] MEDS: Carbidopa/Levodopa 25/100 Tablet PO ×2 (09:06→12:25)
[2018-07-05 09:15] VITALS: BP 197/111; PULSE 69; RESP 18; TEMP 36.8; O2SAT 96
[2018-07-05 09:24] VITALS: PULSE 70
--- NOTE | 2018-07-05 11:03 | CASEMGMT ---
Lillian, from Assisted Living, called for update on patient. Informed Lillian that patient has anticipated discharge of today. Lillian states they need new prescriptions by 1500 in order to fill at their pharmacy. Discussed with Dr. García. I will fax new prescriptions to Lillian now. She states patient will need to bring hard copies with her for their pharmacy's records. Green Sheet updated. Nursing staff: Please follow green sheet and contact assisted living upon discharge.
[2018-07-05] MEDS: Polyethylene Glycol 3350 17 GM PACKET PO (11:16)
[2018-07-05] MEDS: Heparin Injection (Vial) 5,000 UNIT/ML VIAL 5000 UNIT SC (11:16)
[2018-07-05 11:23] VITALS: BP 132/85; PULSE 62
--- NOTE | 2018-07-05 12:12 | PCM.TXEXTCAR ---
- Diet 07/04/18 01:11 Diet: Regular Diet Food consistency:: Regular Liquid Consistency:: Regular/Thin - Routine Orders/Code Status Suppository Type: Dulcolax 10mg Suppository Frequency: Daily PRN Routine Lab Work: BMP - 07/07/2018 AND F/U PCP Code Status: [facility] - Wound(s) right mcfarland Wound Type: Abrasion - Therapies Weight Bearing: Weight bearing as tolerated Physical Therapy: Eval and Treat Occupational Therapy: Eval and Treat Speech Therapy: Eval and Treat - Allergies/Procedures Done in Hospital Allergies/Adverse Reactions: Allergies ciprofloxacin [From Cipro] Allergy (Verified 07/03/18 20:32) Unknown not sure but thinks she is doxycycline Allergy (Verified 07/03/18 20:32) Unknown not sure but thinks she is erythromycin base Allergy (Verified 07/03/18 20:32) Unknown not sure but thinks she is fentanyl Allergy (Verified 07/03/18 20:32) Unknown not sure fosinopril [From Monopril] Allergy (Verified 07/03/18 20:32) Unknown not sure lorazepam Allergy (Verified 07/03/18 20:32) Unknown unsure midazolam [From Versed] Allergy (Verified 07/03/18 20:32) Unknown unsure moxifloxacin [From Avelox] Allergy (Verified 07/03/18 20:32) Unknown unsure naproxen [From Anaprox] Allergy (Verified 07/03/18 20:32) Unknown nitrofurantoin [From Macrobid] Allergy (Verified 07/03/18 20:32) Unknown she's not sure Penicillins Allergy (Verified 07/03/18 20:32) Rash sulfacetamide Allergy (Verified 07/03/18 20:32) Unknown unaware of the reaction telithromycin [From Ketek] Allergy (Verified 07/03/18 20:32) Unknown unaware of reaction hydrocodone [From Vicodin] Adverse Reaction (Verified 07/03/18 20:32) nausea/vomitting propoxyphene [From Darvocet-N] Adverse Reaction (Verified 07/03/18 20:32) n/v tramadol Adverse Reaction (Verified 07/03/18 20:32) n/v sulfonamides Allergy (Uncoded 07/04/18 01:49) Unknown - Type of Care/Length of Stay Estimated LOS: Convalescent Care Less Than 30 days Type of Care Needed: Senior Living/Assisted Living Rehab Potential: Fair Prognosis: Fair - Additional Orders/Day of Discharge Day of Discharge: 07/05/18 - Dietary and Speech Recommendations Dietitian Recommendations/Changes: Will order ONS medpass for increased nutrition if consumed. Rec continue liberal Regular diet r/t s/s of malnutrition and dementia - Follow Up Care Primary Care Physician: Percy Hughes MD [Primary Care Provider] - Please follow up with your Primary Care Physician in: IN 2 WEEKS
--- NOTE | 2018-07-05 12:15 | PCM.DC.SUM ---
Discharge Date and Diagnosis Date of Admission: 07/04/18 Date of Discharge: 07/05/18 - Primary Discharge Diagnosis Active and Suspected Problems Acute encephalopathy with unresponsiveness secondary to polypharmacy/infectious; UTI and metabolic encephalopathy Pathological nondisplaced comminuted fracture involving the midportion of the proximal phalanx of the fourth digit with history of osteoporosis. E. coli UTI; acute on recurrent UTI Physical debilitation, low functional capacity and adult failure to thrive - Secondary Discharge Diagnosis Chronic Problems Multiple falls (Chronic) GERD (gastroesophageal reflux disease) (Chronic) Closed left hip fracture (Chronic) Weakness generalized (Chronic) Anxiety (Chronic) Hypertension (Chronic) Parkinson disease (Chronic) end stage, pt has declined sinemet until recently, sinemet and sinemet CR are both fairly new for her, she is tolerating well Depression (Chronic) Osteoarthritis (Chronic) Flatulence (Chronic) Constipation (Chronic) Insomnia (Chronic) Muscle spasm (Chronic) Hospital Course and Treatment Operations: None Summary of Care Provided: The patient is a 77 year old F from the [facility] with a significant history of frequent falls hypertension, anxiety, depression and Parkinson's disease who was brought from the [facility] because of unresponsiveness. Patient became more combative the last couple of days her trazodone and Seroquel was increased. At dinner time on the day of admission, patient's receivednew dose of trazodone and Seroquel. Later on she became unresponsive and was brought to the emergency department. Seen and examined in the presence of patient's daughter near the bedside. Patient is awake alert and oriented ?3. was most concerned of use of Ativan and other multiple antipsychotic medications including Seroquel. She has history of frequent falls. Intermittently, patient gets severe pain in the neck secondary to severe degenerative arthritis of cervical spine. General: Alert, low functional capacity HEENT: Atraumatic, PERRLA, EOMI, Normocephalic Neck: Supple, No JVD, Negative Carotid Bruits Lungs: Clear to auscultation, Normal air movement Cardiovascular: Regular rate, No murmurs Abdomen: Bowel Sounds Present, Soft, Non Tender Extremities: No edema, Capillary Refill Less than 3 Seconds Skin: - - Swelling of dorsal part of left Musculoskeletal: No Muscle Wasting, Tenderness - Last 3 three lateral left fingers. ulnar-sided splint off for the last 2 digits Lymphatic: No Cervical, Supraclavicular, or Inguinal Adenopathy Neurological: - - Patient was able to raise all extremities ; and could squeeze with her bilateral hands Psych/Mental Status: Awake and alert. Patient also has history of recurrent UTI with multiple organisms including ESBL E. coli, E. coli, Morganella morganii. Currently UA is positive of pyuria, WBC more than 100 cells with positive nitrite and LE. Urine bacteria 4+. Urine culture shows E. coli sensitive to ceftriaxone and cefepime. This time it is negative of ESBL. Initially, was empirically started on IV meropenem which is changed to ceftriaxone and patient tolerated well. Based on her extensive history of allergic, and sensitivity patient is discharged on Ceftin ear for 3 more days. Discontinue Ativan. Continue Keppra. Adjust psychotropic medications. Left comminuted nondisplaced fourth proximal phalanx fracture.ulnar-sided splint off for the last 2 digits Microbiology Past 72 Hours 07/03/18 21:20 Urine, Clean Catch Urine Culture - Final Escherichia coli Clinical Impression(s) from Imaging Studies Brain CT 07/03/18 20:39 IMPRESSION: 1. Chronic involutional changes of the brain. 2. No CT evidence of acute intracranial hemorrhage. Cervical Spine CT 07/03/18 20:40 IMPRESSION: 1. No CT evidence of acute compression or displaced fracture of cervical spine. 2. Multilevel degenerative disc disease and degenerative arthropathy of the cervical spine with neural foraminal narrowing, as described. Hand X-Ray 07/04/18 05:48 IMPRESSION: Nondisplaced comminuted fracture involving the midportion of the proximal phalanx of the fourth digit. Home Medications: Medications to take at Discharge Carvedilol [Coreg (Beta [place])] 6.25 mg PO BID 11/29/16 Calcium Carbonate [Tums] 1,000 mg PO Q4H PRN PRN #0 tablet 12/13/16 Polyvinyl Alcohol [Artificial Tears] 1 drop EACH EYE DAILY PRN PRN 07/13/17 Ondansetron [Zofran Odt] 4 mg PO Q8H PRN PRN #30 08/12/17 Aspirin [Aspirin EC] 81 mg PO DAILY 10/26/17 Citalopram [Celexa] 40 mg PO DAILY 10/26/17 Cholecalciferol (Vitamin D3) [Vitamin D3] 5,000 unit PO DAILY 05/20/18 Polyethylene Glycol 3350 [Miralax] 17 gm PO DAILY 05/20/18 hydrOXYzine pamoate capsule [Vistaril pamoate capsule] 50 mg PO Q6H PRN PRN 05/20/18 Acetaminophen Liquid [Tylenol Liquid] 650 mg PO TID PRN PRN 07/01/18 Bisacodyl [Laxative Suppository] 10 mg RECTAL QHS 07/01/18 Melatonin/Pyridoxine [Melatonin 5 mg Tablet] 10 mg PO QHS PRN PRN 07/01/18 Oxybutynin Chloride [Ditropan Xl] 10 mg PO QHS 07/01/18 Pantoprazole Sodium [Protonix] 40 mg PO DAILY 07/01/18 Trihexyphenidyl HCl 1 mg PO TID 07/01/18 levETIRAcetam tablet [Keppra tablet] 500 mg PO QHS 07/01/18 Amlodipine [Norvasc] 5 mg PO DAILY #30 tab 07/05/18 Carbidopa/Levodopa 25/100 [Sinemet 25/100] 3 tab PO TIDAC #30 tab 07/05/18 Carbidopa/Levodopa [Sinemet Cr 50-200 Tablet] 1 ea PO QHS #10 tablet.er 07/05/18 Cefdinir [Omnicef [equiv]] 300 mg PO Q12H #6 cap 07/05/18 Gabapentin [Neurontin] 100 mg PO TIDCM #0 07/05/18 Potassium Chloride [K-Dur] 20 meq PO BIDCM #4 tab 07/05/18 Quetiapine Fumarate [Seroquel] 25 mg PO QHS #0 07/05/18 Following Prescrptions Were Given to Patient: Amlodipine [Norvasc] 5 mg PO DAILY #30 tab Carbidopa/Levodopa [Sinemet Cr 50-200 Tablet] 1 ea PO QHS #10 tablet.er Carbidopa/Levodopa 25/100 [Sinemet 25/100] 3 tab PO TIDAC #30 tab Cefdinir [Omnicef [equiv]] 300 mg PO Q12H #6 cap Potassium Chloride [K-Dur] 20 meq PO BIDCM #4 tab Primary Care Physician: Percy Hughes MD [Primary Care Provider] - Please follow up with your Primary Care Physician in: IN 2 WEEKS Medical Necessity - Tobacco Use Smoking Status: Never smoker Meaningful Use Info Meaningful Use Diagnoses (Choose all that apply): None applicable Code Visit Inpatient E&M: 59325 Disch Hosp
[2018-07-05] MEDS: 0.9% NaCl Peripheral Flush Adult/Peds IV (12:23)
[2018-07-05] MEDS: Ceftriaxone 1 GM/50 ML BAG IV (12:23)
--- NOTE | 2018-07-05 13:07 | NURSING ---
attempted to call pt's daughter Alecia twice regarding discharge at both phone numbers on demographics. Messages left including nut picker time of 14:00 by Joi zurita for discharge to [facility].
--- NOTE | 2018-07-05 13:11 | NURSING ---
daughter Alecia returned call and agreeable to plan of discharge and transportation arrangements.
--- NOTE | 2018-07-05 14:14 | NURSING ---
Report left on answering machine, at [facility].
--- NOTE | 2018-07-05 14:47 | NURSING ---
talked w/ yuval cruzit as when called at 13:07 it was arranged for pickup to be 14:00 aware per dispatch crew arrival time is now in 20-25minutes
== END 2018-07-05 15:30 | disposition home or self-care (01) | DRG 91 ==
LOC: ED 07-04 00:26 → MS3 07-04 00:44
PROVIDERS: Admitting Provider Hospitalist; Emergency Provider Emergency Medicine; Family Provider Family Medicine; PCP Family Medicine; Visit Provider Internal Medicine
DX: G92 Toxic encephalopathy (principal); G93.41 Metabolic encephalopathy; E44.0 Moderate protein-calorie malnutrition; M80.042A Age-related osteoporosis with current pathological fracture, left hand, initial encounter for fracture; N39.0 Urinary tract infection, site not specified; Z66 Do not resuscitate; E87.6 Hypokalemia; G20 Parkinson's disease; N32.81 Overactive bladder; R29.6 Repeated falls; Z68.21 Body mass index [BMI] 21.0-21.9, adult; B96.20 Unspecified Escherichia coli [E. coli] as the cause of diseases classified elsewhere; R53.81 Other malaise; R62.7 Adult failure to thrive; K21.9 Gastro-esophageal reflux disease without esophagitis; I10 Essential (primary) hypertension; F41.9 Anxiety disorder, unspecified; F32.9 Major depressive disorder, single episode, unspecified; M47.892 Other spondylosis, cervical region; Z87.440 Personal history of urinary (tract) infections; T50.905A Adverse effect of unspecified drugs, medicaments and biological substances, initial encounter; K59.00 Constipation, unspecified; Z79.82 Long term (current) use of aspirin; Z79.899 Other long term (current) drug therapy
CPT/HCPCS: 36415; 70450; 71045; 72125; 73120; 80048; 80307; 80320; 81001; 85025; 87077; 87086; 87088; 87186; 93005; 96372; 97162; 97166; 97802; 99285; J2185; J7030; J7040; P9612; A4216; G0480; J3486